=== PATIENT | female | born 1950 | race Caucasian/White ===

== ENCOUNTER 2017-03-20 13:40 | Emergency (ER) | payer BC ==
--- NOTE | 2017-03-20 16:13 | ED ---
General Adult HPI - General Chief complaint: Recheck/Abnormal Lab/Rx Stated complaint: SOB/Dizziness Time Seen by Provider: 03/20/17 15:50 Source: patient, RN notes reviewed Mode of arrival: wheelchair Limitations: no limitations - History of Present Illness Initial comments: Patient 67-year-old female who presents emergency room today with chief complaint of increased weight gain 20 pounds over the last week. Does admit to shortness of breath. Patient does admit that it's worse with exertion when she is up moving around. Patient admits that she's also felt lightheaded dizzy and had some pain to the left side of the abdomen. She was that she gets blurry vision as well probably symptoms occur. Patient admits to some tongue swelling. States been following his family doctor believed related factor thyroid. Patient denies any other complaint or symptoms. Patient denies any recent fever, chills, chest pain, back pain, nausea or vomiting, numbness or tingling, dysuria or hematuria, constipation or diarrhea, headaches or visual changes, or any other complaints. - Related Data Home Medications Medication Instructions Recorded Confirmed DULoxetine HCL [Cymbalta] 60 mg PO HS 09/30/13 03/20/17 Insulin Glargine [Lantus] 10 unit SQ HS 09/30/13 03/20/17 Losartan [Cozaar] 25 mg PO DAILY 03/17/15 03/20/17 Levothyroxine Sodium [Synthroid] 200 mcg PO MOTUWETHFRSA 11/18/15 03/20/17 Cyanocobalamin (Vitamin B-12) 1,000 mcg PO DAILY 03/20/17 03/20/17 [Vitamin B-12] Insulin Lispro [humaLOG Kwikpen] 6 unit SQ AC-TID 03/20/17 03/20/17 L.acidoph,Paracasei, B.lactis 1 cap PO DAILY 03/20/17 03/20/17 [Probiotic] Levothyroxine Sodium [Synthroid] 100 mcg PO PAYAN 03/20/17 03/20/17 Previous Rx's Medication Instructions Recorded Canagliflozin [Invokana] 100 mg PO DAILY #30 tablet 11/29/13 Metoprolol Succinate [Toprol XL] 25 mg PO BID #30 tab.er.24h 11/21/15 Allergies Allergy/AdvReac Type Severity Reaction Status Date / Time No Known Allergies Allergy Verified 03/20/17 16:58 Review of Systems ROS Statement: Those systems with pertinent positive or pertinent negative responses have been documented in the HPI. ROS Other: All systems not noted in ROS Statement are negative. Past Medical History Past Medical History: Asthma, Coronary Artery Disease (CAD), Cancer, Heart Failure, COPD, Diabetes Mellitus, Eye Disorder, Hearing Disorder / Deafness, Hypertension, Thyroid Disorder Additional Past Medical History / Comment(s): HX. AORTIC STENOSIS. 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 [place] RT EAR-WEARS AID; LT GLASS EYE D/T GLAUCOMA, RT EYE GLAUCOMA. BORN W/ PDA - CORRECTED. 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-USUALLY WHEN ACTIVE History of Any Multi-Drug Resistant Organisms: None Reported Past Surgical History: Appendectomy, Cholecystectomy, Heart Catheterization, Tubal Ligation Additional Past Surgical History / Comment(s): aortic valve replacement 39 eye operation cardiac sugery as a baby thyroidectomy Past Anesthesia/Blood Transfusion Reactions: Family History of Problems w/ Anesthesia, Postoperative Nausea & Vomiting (PONV) Additional Past Anesthesia/Blood Transfusion Reaction / Comment(s): BOTH PARENTS ALSO HAD PONV Past Psychological History: Anxiety, Depression Smoking Status: Never smoker Past Alcohol Use History: None Reported Past Drug Use History: None Reported - Past Family History Father Family Medical History: Diabetes Mellitus, Renal Disease Additional Family Medical History / Comment(s): FATHER AT AGE 78 IN HIS SLEEP Mother Family Medical History: Dementia Additional Family Medical History / Comment(s): MOTHER AT AGE 78 YRS. General Exam - General Exam Comments Initial Comments: General: The patient is awake and alert, in no distress, and does not appear acutely ill. Eye: Right pupil is round and reactive to light. Left eye is a glass eye. extra -ocular movements are intact. No nystagmus. There is normal conjunctiva bilaterally. No signs of icterus. Ears, nose, mouth and throat: There are moist mucous membranes and no oral lesions. Neck: The neck is supple, there is no tenderness or JVD. Cardiovascular: There is a regular rate and rhythm. No murmur, rub or gallop is appreciated. Respiratory: Lungs are clear to auscultation, respirations are non-labored, breath sounds are equal. No wheezes, stridor, rales, or rhonchi. Gastrointestinal: Normal appearance abdomen. Normal bowel sounds. Abdomen soft on palpation. Patient does have tenderness left upper quadrant. No rebound tenderness. No guarding. No CVA tenderness. Musculoskeletal: Normal ROM, no tenderness. Strength 5/5. Sensation intact. Pulses equal bilaterally 2+. Neurological: A&O x 3. CN II-XII intact, There are no obvious motor or sensory deficits. Coordination appears grossly intact. Speech is normal. Skin: Skin is warm and dry and no rashes or lesions are noted. Psychiatric: Cooperative, appropriate mood & affect, normal judgment. Limitations: no limitations Course Vital Signs 03/20/17 03/20/17 03/20/17 13:50 16:44 17:33 Temperature 98.1 F 97.6 F Pulse Rate 79 73 73 Respiratory 20 18 Rate Blood Pressure 139/79 149/83 136/80 O2 Sat by Pulse 99 98 96 Oximetry EKG Findings - EKG Comments: EKG Findings:: EKG performed at 1619: Shows normal sinus rhythm with a left bundle branch block at 76 bpm. CA interval 174. QRS 136. QT/QTc 432/486. Compared to previous EKG on 11/18/2015 showed no acute change. Medical Decision Making - Medical Decision Making Discussed with attending Dr nicole. Patient reexamined at this time shows no signs of distress. Patient's labs been reviewed. Patient's TSH is elevated here in emergency room. She currently is on Synthroid. She does not that for the last 2 weeks she did not have the medication was recently got it from the family doctor once again has been taking it. Patient is advised to follow-up the family doctor at this time. No other symptoms. Currently in the emergency room. Advised to return if any symptoms return increase or worsen. She states understanding and is in agreement. - Lab Data Result diagrams: 03/20/17 16:28 03/20/17 16:28 Lab Results 03/20/17 03/20/17 03/20/17 Range/Units 16:28 16:28 16:28 WBC 7.3 (3.8-10.6) k/uL RBC 5.39 (3.80-5.40) m/uL Hgb 15.2 (11.4-16.0) gm/dL Hct 45.7 (34.0-46.0) % MCV 84.9 (80.0-100.0) fL MCH 28.2 (25.0-35.0) pg MCHC 33.2 (31.0-37.0) g/dL RDW 14.7 (11.5-15.5) % Plt Count 258 (150-450) k/uL Neutrophils % 67 % Lymphocytes % 22 % Monocytes % 4 % Eosinophils % 4 % Basophils % 1 % Neutrophils # 4.9 (1.3-7.7) k/uL Lymphocytes # 1.6 (1.0-4.8) k/uL Monocytes # 0.3 (0-1.0) k/uL Eosinophils # 0.3 (0-0.7) k/uL Basophils # 0.1 (0-0.2) k/uL PT (9.0-12.0) sec INR (<1.2) APTT (22.0-30.0) sec Sodium (137-145) mmol/L Potassium (3.5-5.1) mmol/L Chloride (98-107) mmol/L Carbon Dioxide (22-30) mmol/L Anion Gap mmol/L BUN (7-17) mg/dL Creatinine (0.52-1.04) mg/dL Est GFR (MDRD) Af Amer (>60 ml/min/1.73 sqM) Est GFR (MDRD) Non-Af (>60 ml/min/1.73 sqM) Glucose (74-99) mg/dL Calcium (8.4-10.2) mg/dL Total Bilirubin (0.2-1.3) mg/dL AST (14-36) U/L ALT (9-52) U/L Alkaline Phosphatase (38-126) U/L Total Creatine Kinase 351 H (30-135) U/L CK-MB (CK-2) 3.7 H* (0.0-2.4) ng/mL CK-MB (CK-2) Rel Index 1.1 Troponin I <0.012 (0.000-0.034) ng/mL NT-Pro-B Natriuret Pep pg/mL Total Protein (6.3-8.2) g/dL Albumin (3.5-5.0) g/dL TSH 80.700 H (0.465-4.680) mIU/L 03/20/17 03/20/1718 Range/Units 16:28 16:28 16:28 WBC (3.8-10.6) k/uL RBC (3.80-5.40) m/uL Hgb (11.4-16.0) gm/dL Hct (34.0-46.0) % MCV (80.0-100.0) fL MCH (25.0-35.0) pg MCHC (31.0-37.0) g/dL RDW (11.5-15.5) % Plt Count (150-450) k/uL Neutrophils % % Lymphocytes % % Monocytes % % Eosinophils % % Basophils % % Neutrophils # (1.3-7.7) k/uL Lymphocytes # (1.0-4.8) k/uL Monocytes # (0-1.0) k/uL Eosinophils # (0-0.7) k/uL Basophils # (0-0.2) k/uL PT 10.4 (9.0-12.0) sec INR 1.1 (<1.2) APTT 24.9 (22.0-30.0) sec Sodium 135 L (137-145) mmol/L Potassium 4.6 (3.5-5.1) mmol/L Chloride 96 L (98-107) mmol/L Carbon Dioxide 28 (22-30) mmol/L Anion Gap 11 mmol/L BUN 22 H (7-17) mg/dL Creatinine 1.02 (0.52-1.04) mg/dL Est GFR (MDRD) Af Amer >60 (>60 ml/min/1.73 sqM) Est GFR (MDRD) Non-Af 54 (>60 ml/min/1.73 sqM) Glucose 197 H (74-99) mg/dL Calcium 10.0 (8.4-10.2) mg/dL Total Bilirubin 0.5 (0.2-1.3) mg/dL AST 74 H (14-36) U/L ALT 65 H (9-52) U/L Alkaline Phosphatase 65 (38-126) U/L Total Creatine Kinase (30-135) U/L CK-MB (CK-2) (0.0-2.4) ng/mL CK-MB (CK-2) Rel Index Troponin I (0.000-0.034) ng/mL NT-Pro-B Natriuret Pep 48 pg/mL Total Protein 7.7 (6.3-8.2) g/dL Albumin 4.5 (3.5-5.0) g/dL TSH (0.465-4.680) mIU/L Disposition Clinical Impression: Hypothyroid Disposition: HOME SELF-CARE Condition: Stable Instructions: Hypothyroidism (ED) Additional Instructions: Please follow-up with family doctor in the next 2 days. Please return to emergency room if the symptoms increase or worsen or for any other concerns. Referrals: Beau Palmer DO [Primary Care Provider] - 1-2 days Time of Disposition: 18:52
[2017-03-20 16:41] LABS: Basophils # (A) 0.1 k/uL (0-0.2); Basophils % (A) 1 %; Eosinophils # (A) 0.3 k/uL (0-0.7); Eosinophils % (A) 4 %; HCT 45.7 % (34.0-46.0); HGB 15.2 gm/dL (11.4-16.0); Lymphocytes # (A) 1.6 k/uL (1.0-4.8); Lymphocytes % (A) 22 %; MCH 28.2 pg (25.0-35.0); MCHC 33.2 g/dL (31.0-37.0); MCV 84.9 fL (80.0-100.0); Mean Platelet Volume 6.8; Monocytes # (A) 0.3 k/uL (0-1.0); Monocytes % (A) 4 %; Neutrophils # (A) 4.9 k/uL (1.3-7.7); Neutrophils % (A) 67 %; Platelet Count 258 k/uL (150-450); RBC 5.39 m/uL (3.80-5.40); RDW 14.7 % (11.5-15.5); WBC 7.3 k/uL (3.8-10.6)
--- NOTE | 2017-03-20 16:49 | XR ---
EXAMINATION TYPE: XR chest 2V DATE OF EXAM: 03/20/2017 COMPARISON: 11/18/15 HISTORY: Shortness of breath TECHNIQUE: Frontal and lateral views of the chest are obtained. FINDINGS: Scattered senescent parenchymal changes noted. Hyperinflation compatible with COPD. No evidence for infiltrate. No evidence for atelectasis. Heart size is stable. Mediastinal structures are stable and grossly unremarkable. No evidence for hilar prominence. Degenerative changes dorsal spine. IMPRESSION: 1. No evidence for acute pulmonary disease.
[2017-03-20 16:50] LABS: INR 1.1 (<1.2); Partial Thromboplastin Time 24.9 sec (22.0-30.0); Prothrombin Time 10.4 sec (9.0-12.0)
[2017-03-20 16:52] LABS: ALT 65 U/L (9-52); AST 74 U/L (14-36); Albumin 4.5 g/dL (3.5-5.0); Alkaline Phosphatase 65 U/L (38-126); Anion Gap 11 mmol/L; Blood Urea Nitrogen 22 mg/dL (7-17); Carbon Dioxide 28 mmol/L (22-30); Chloride 96 mmol/L (98-107); Glucose 197 mg/dL (74-99); Potassium 4.6 mmol/L (3.5-5.1); Sodium 135 mmol/L (137-145); Total Bilirubin 0.5 mg/dL (0.2-1.3); Total Protein 7.7 g/dL (6.3-8.2)
[2017-03-20 17:00] LABS: Creatine Kinase 351 U/L (30-135)
[2017-03-20 17:13] LABS: Troponin I <0.012 ng/mL (0.000-0.034)
[2017-03-20 17:14] LABS: Creatine Kinase MB 3.7 ng/mL (0.0-2.4)
[2017-03-20 17:34] VITALS: RESP 18
[2017-03-20 19:03] VITALS: TEMP 97.3
[2017-03-20 19:05] VITALS: BP 169/105; PULSE 86
[2017-03-20 19:17] LABS: T4, Free (Free Thyroxine) <0.07 ng/dL (0.78-2.19)
== END 2017-03-20 19:03 | disposition home or self-care (01) ==
LOC: EC 13:40
DX: E03.9 Hypothyroidism, unspecified (principal); J44.9 Chronic obstructive pulmonary disease, unspecified; E11.9 Type 2 diabetes mellitus without complications; I10 Essential (primary) hypertension; F32.9 Major depressive disorder, single episode, unspecified; F41.9 Anxiety disorder, unspecified; Z98.51 Tubal ligation status; Z95.5 Presence of coronary angioplasty implant and graft; Z85.850 Personal history of malignant neoplasm of thyroid; Z90.49 Acquired absence of other specified parts of digestive tract; Z79.4 Long term (current) use of insulin; Z79.899 Other long term (current) drug therapy
CPT/HCPCS: 36415; 71046; 80053; 82550; 82553; 83880; 84439; 84443; 84484; 85025; 85610; 85730; 93005; 99285

== ENCOUNTER 2018-04-25 09:45 | Observation (INO) | payer BC, MEDICARE ==
[2018-04-25] MEDS ORDERED: ASPIRIN 81 MG PO STA (10:10)
[2018-04-25] MEDS ORDERED: SODIUM CHLORIDE 0.9% 500 ML IV STA (10:11)
--- NOTE | 2018-04-25 10:16 | ED ---
General Adult HPI - General Chief complaint: Chest Pain Stated complaint: chest pain Time Seen by Provider: 04/25/18 10:04 Source: patient Mode of arrival: wheelchair Limitations: no limitations - History of Present Illness Initial comments: Dictation was produced using [employer] dictation software. please excuse any grammatical, word or spelling errors. Chief Complaint: 68-year-old female with past medical history of asthma, coronary artery disease, heart rate, COPD, diabetes presents with chest pain that started last night. History of Present Illness: Patient is 68-year-old female she has past medical history coronary artery disease status post open heart for laboratory placement. Patient has history of bioprosthetic valve. Since last night patient began having extremity pain. She states that this morning she woke up with chest pain. She reports the chest pain is a pressure-like sensation to the anterior chest. Denies any radiation to the back. No radiation to the shoulders. No associated diaphoresis. She does complain of associated dull crampy pain of all of her extremities. Denies any numbness and weakness of those extremities. Patient reports exacerbation with ambulation. Patient denies any pain with inspiration or expiration. Denies any symptoms over the weekend decided prior to yesterday. The ROS documented in this emergency department record has been reviewed and confirmed by me. Those systems with pertinent positive or negative responses have been documented in the HPI. All other systems are other negative and/or noncontributory. PHYSICAL EXAM: General Impression: Alert and oriented x3, mild acute distress secondary to pain HEENT: Normocephalic atraumatic, extra-ocular movements intact, pupils equal and reactive to light bilaterally, mucous membranes moist. Cardiovascular: Heart regular rate and rhythm, S1&S2 audible, no murmurs, rubs or gallops Chest: Lungs clear to auscultation bilaterally, no rhonchi, no wheeze, no rales, midline chest scar Abdomen: Bowel sounds present, abdomen soft, non-tender, non-distended, no organomegaly Musculoskeletal: Pulses present and equal in all extremities, no peripheral edema Motor: no focal deficits noted Neurological: CN II-XII grossly intact, no focal motor or sensory deficits noted Skin: Intact with no visualized rashes Psych: Normal affect and mood ED course: 68-year-old female presents with chief complaint of chest pain and for extremity pain. Vital signs upon arrival shows heart rate of 116, worse vital signs within acceptable limits. EKG shows hyperacute T waves, worse compared to 03/20/2017. Patient has 4 extremities pain. All pulses are 2+ in all extremities. Patient does not have any asymmetrical strength deficit or sensory deficits to the extremities. Patient does not have radiation of pain to the back. There is no clinical suspicion of acute aortic dissection at this time. Given EKG changes and evidence of worsening hyperacute T waves there is strong clinical suspicion of acute coronary syndrome at this time. Patient given aspirin. Repeat EKG was performed after 40 minutes from initial EKG showing no dynamic changes at this time. Patient reevaluated with no progression of symptoms. She still however complains of mild pain which is slightly improved compared to initial time of arrival. No suspicion of acute myocardial infarctions at this time.Laboratory evaluation obtained. CBC unremarkable. Coag panel unremarkable. Metabolic panel does show some mild gap acidosis. Patient has some magnesium 1.5. Cardiac enzymes negative. Patient has no focal findings to suggest extremity ischemia. At this point is unclear what patient's gap acidosis from a beat it is minimal. Patient given parenteral magnesium. Patient started on heparin. [facility]. Patient given aspirin. EKG interpretation: Ventricular rate 101, sinus tachycardia, NE interval 152, QRS 126, QTC is 471. No NE prolongation, no QTC prolongation, no ST or T-wave changes noted. EKG compared to March 20, 2017 showing no changes. - Related Data Home Medications Medication Instructions Recorded Confirmed DULoxetine HCL [Cymbalta] 60 mg PO BID 09/30/13 04/25/18 Insulin Glargine [Lantus] 10 unit SQ HS 09/30/13 04/25/18 Losartan [Cozaar] 25 mg PO HS 03/17/15 04/25/18 Levothyroxine Sodium [Synthroid] 200 mcg PO DAILY 11/18/15 04/25/18 Aspirin EC [Ecotrin Low Dose] 81 mg PO HS 04/25/18 04/25/18 Brimonidine Tartrate [Alphagan P 1 drops RIGHT EYE TID 04/25/18 04/25/18 0.1% Ophth Soln] Dorzolamide 2% [Trusopt 2%] 1 drops RIGHT EYE TID 04/25/18 04/25/18 Insulin Degludec [Tresiba 8 units SQ AC-SUPPER 04/25/18 04/25/18 Flextouch U-100] Latanoprost [Xalatan 0.005%] 1 drop RIGHT EYE HS 04/25/18 04/25/18 Previous Rx's Medication Instructions Recorded Canagliflozin [Invokana] 100 mg PO DAILY #30 tablet 11/29/13 Metoprolol Succinate [Toprol XL] 25 mg PO BID #30 tab.er.24h 11/21/15 Allergies Allergy/AdvReac Type Severity Reaction Status Date / Time No Known Allergies Allergy Verified 04/25/18 10:16 Review of Systems ROS Statement: Those systems with pertinent positive or pertinent negative responses have been documented in the HPI. ROS Other: All systems not noted in ROS Statement are negative. Past Medical History Past Medical History: Asthma, Coronary Artery Disease (CAD), Cancer, Heart Failure, COPD, Diabetes Mellitus, Eye Disorder, Hearing Disorder / Deafness, Hypertension, Thyroid Disorder Additional Past Medical History / Comment(s): HX. AORTIC STENOSIS. 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 [place] RT EAR-WEARS AID; LT GLASS EYE D/T GLAUCOMA, RT EYE GLAUCOMA. BORN W/ PDA - CORRECTED. 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-USUALLY WHEN ACTIVE History of Any Multi-Drug Resistant Organisms: None Reported Past Surgical History: Appendectomy, Cholecystectomy, Heart Catheterization, Tubal Ligation Additional Past Surgical History / Comment(s): aortic valve replacement 39 eye operation cardiac sugery as a baby thyroidectomy Past Anesthesia/Blood Transfusion Reactions: Family History of Problems w/ Anesthesia, Postoperative Nausea & Vomiting (PONV) Additional Past Anesthesia/Blood Transfusion Reaction / Comment(s): BOTH PARENTS ALSO HAD PONV Past Psychological History: Anxiety, Depression Smoking Status: Never smoker Past Alcohol Use History: None Reported Past Drug Use History: None Reported - Past Family History Father Family Medical History: Diabetes Mellitus, Renal Disease Additional Family Medical History / Comment(s): FATHER AT AGE 78 IN HIS SLEEP Mother Family Medical History: Dementia Additional Family Medical History / Comment(s): MOTHER AT AGE 78 YRS. General Exam Limitations: no limitations Course Vital Signs 04/25/18 04/25/18 04/25/18 09:49 10:30 11:30 Temperature 97.8 F Pulse Rate 116 H 101 H 90 Respiratory 16 14 28 H Rate Blood Pressure 121/81 112/73 147/90 O2 Sat by Pulse 98 98 97 Oximetry Medical Decision Making - Lab Data Result diagrams: 04/25/18 10:08 04/25/18 10:08 Lab Results 04/25/18 04/25/18 04/25/18 Range/Units 10:08 10:08 10:08 WBC 4.2 (3.8-10.6) k/uL RBC 5.43 H (3.80-5.40) m/uL Hgb 15.1 (11.4-16.0) gm/dL Hct 45.2 (34.0-46.0) % MCV 83.2 (80.0-100.0) fL MCH 27.8 (25.0-35.0) pg MCHC 33.4 (31.0-37.0) g/dL RDW 13.9 (11.5-15.5) % Plt Count 248 (150-450) k/uL Neutrophils % 84 % Lymphocytes % 7 % Monocytes % 4 % Eosinophils % 3 % Basophils % 0 % Neutrophils # 3.5 (1.3-7.7) k/uL Lymphocytes # 0.3 L (1.0-4.8) k/uL Monocytes # 0.2 (0-1.0) k/uL Eosinophils # 0.1 (0-0.7) k/uL Basophils # 0.0 (0-0.2) k/uL PT (9.0-12.0) sec INR (<1.2) APTT (22.0-30.0) sec Sodium 138 (137-145) mmol/L Potassium 4.3 (3.5-5.1) mmol/L Chloride 104 (98-107) mmol/L Carbon Dioxide 21 L (22-30) mmol/L Anion Gap 13 mmol/L BUN 16 (7-17) mg/dL Creatinine 0.76 (0.52-1.04) mg/dL Est GFR (CKD-EPI)AfAm >90 (>60 ml/min/1.73 sqM) Est GFR (CKD-EPI)NonAf 83 (>60 ml/min/1.73 sqM) Glucose 160 H (74-99) mg/dL Calcium 9.7 (8.4-10.2) mg/dL Magnesium 1.5 L (1.6-2.3) mg/dL Total Bilirubin 1.1 (0.2-1.3) mg/dL AST 24 (14-36) U/L ALT 24 (9-52) U/L Alkaline Phosphatase 59 (38-126) U/L Creatine Kinase (30-135) U/L Troponin I (0.000-0.034) ng/mL NT-Pro-B Natriuret Pep 202 pg/mL Total Protein 6.8 (6.3-8.2) g/dL Albumin 4.1 (3.5-5.0) g/dL Lipase 93 (23-300) U/L 04/25/18 04/25/18 04/25/18 Range/Units 10:08 10:08 10:08 WBC (3.8-10.6) k/uL RBC (3.80-5.40) m/uL Hgb (11.4-16.0) gm/dL Hct (34.0-46.0) % MCV (80.0-100.0) fL MCH (25.0-35.0) pg MCHC (31.0-37.0) g/dL RDW (11.5-15.5) % Plt Count (150-450) k/uL Neutrophils % % Lymphocytes % % Monocytes % % Eosinophils % % Basophils % % Neutrophils # (1.3-7.7) k/uL Lymphocytes # (1.0-4.8) k/uL Monocytes # (0-1.0) k/uL Eosinophils # (0-0.7) k/uL Basophils # (0-0.2) k/uL PT 10.5 (9.0-12.0) sec INR 1.0 (<1.2) APTT 22.0 (22.0-30.0) sec Sodium (137-145) mmol/L Potassium (3.5-5.1) mmol/L Chloride (98-107) mmol/L Carbon Dioxide (22-30) mmol/L Anion Gap mmol/L BUN (7-17) mg/dL Creatinine (0.52-1.04) mg/dL Est GFR (CKD-EPI)AfAm (>60 ml/min/1.73 sqM) Est GFR (CKD-EPI)NonAf (>60 ml/min/1.73 sqM) Glucose (74-99) mg/dL Calcium (8.4-10.2) mg/dL Magnesium (1.6-2.3) mg/dL Total Bilirubin (0.2-1.3) mg/dL AST (14-36) U/L ALT (9-52) U/L Alkaline Phosphatase (38-126) U/L Creatine Kinase 46 (30-135) U/L Troponin I <0.012 (0.000-0.034) ng/mL NT-Pro-B Natriuret Pep pg/mL Total Protein (6.3-8.2) g/dL Albumin (3.5-5.0) g/dL Lipase (23-300) U/L Disposition Clinical Impression: ACS (acute coronary syndrome) Disposition: ADMITTED IP TO THIS HOSP Condition: Fair Referrals: Beau Palmer DO [Primary Care Provider] - 1-2 days Decision Time: 12:16
[2018-04-25 10:31] LABS: Basophils % (A) 0 %; Eosinophils # (A) 0.1 k/uL (0-0.7); Eosinophils % (A) 3 %; HCT 45.2 % (34.0-46.0); HGB 15.1 gm/dL (11.4-16.0); Lymphocytes # (A) 0.3 k/uL (1.0-4.8); Lymphocytes % (A) 7 %; MCH 27.8 pg (25.0-35.0); MCHC 33.4 g/dL (31.0-37.0); MCV 83.2 fL (80.0-100.0); Mean Platelet Volume 6.5; Monocytes # (A) 0.2 k/uL (0-1.0); Monocytes % (A) 4 %; Neutrophils # (A) 3.5 k/uL (1.3-7.7); Neutrophils % (A) 84 %; Platelet Count 248 k/uL (150-450); RBC 5.43 m/uL (3.80-5.40); RDW 13.9 % (11.5-15.5); WBC 4.2 k/uL (3.8-10.6)
--- NOTE | 2018-04-25 10:38 | XR ---
EXAMINATION TYPE: XR chest 2V DATE OF EXAM: 04/25/2018 COMPARISON: 03/20/2017 TECHNIQUE: PA and lateral views submitted. HISTORY: Chest pain FINDINGS: The lungs are clear and there is no pneumothorax, pleural effusion, or focal pneumonia. Hypertrophi c and degenerative change of the spine. Postoperative changes noted. Prosthetic heart valve. No overt failure. No consolidation. No pleural effusion. IMPRESSION: 1. No acute process.
[2018-04-25 10:39] LABS: Prothrombin Time 10.5 sec (9.0-12.0)
[2018-04-25 10:46] LABS: ALT 24 U/L (9-52); AST 24 U/L (14-36); Albumin 4.1 g/dL (3.5-5.0); Alkaline Phosphatase 59 U/L (38-126); Anion Gap 13 mmol/L; Blood Urea Nitrogen 16 mg/dL (7-17); Calcium 9.7 mg/dL (8.4-10.2); Carbon Dioxide 21 mmol/L (22-30); Chloride 104 mmol/L (98-107); Glucose 160 mg/dL (74-99); Lipase 93 U/L (23-300); Magnesium 1.5 mg/dL (1.6-2.3); Potassium 4.3 mmol/L (3.5-5.1); Sodium 138 mmol/L (137-145); Total Bilirubin 1.1 mg/dL (0.2-1.3); Total Protein 6.8 g/dL (6.3-8.2)
[2018-04-25] MEDS ORDERED: HEPARIN SODIUM,PORCINE 5,000 UNIT/ML 1 ML VIAL IV PRN (11:37)
[2018-04-25] MEDS ORDERED: HEPARIN SODIUM,PORCINE 5,000 UNIT/ML 1 ML VIAL IV ONE (11:37)
[2018-04-25] MEDS ORDERED: HEPARIN SOD,PORK IN 0.45% NACL 25,000 UNIT in 0.45% NACL 1 250ML.BAG IV SCH (11:45)
[2018-04-25] MEDS: MAGNESIUM SULFATE-D5W PMX 1 GM in DEXTROSE/WATER 1 100ML.BAG IVPB SCH ×2 (12:01→14:43)
[2018-04-25] MEDS ORDERED: NITROGLYCERIN SL TABS 0.4 MG TAB SUBLINGUAL PRN (12:09)
[2018-04-25 13:40] VITALS: BMI 28.3
[2018-04-25 16:59] LABS: Glucose,Whole Blood 82 mg/dL (75-99)
[2018-04-25 17:03] VITALS: RESP 18
--- NOTE | 2018-04-25 17:28 | CONS ---
CONSULTATION Mrs. Watkins is a 68-year-old female who is followed by Dr. Riley Palencia on a regular basis and presented with symptoms of chest discomfort. She has a known history of aortic valve disease status post aortic valve replacement, but no history of obstructive coronary artery disease. She presented with symptoms of chest discomfort and leg discomfort, occurred after she was exercising, but not during exercise. She has underwent cardiac catheterization prior to her surgery that was done in 2013 and subsequently underwent repeat cardiac catheterization in November 2015 that revealed no evidence of progression of disease. She has a known history of PDA closure as a child. She has underwent a myocardial perfusion imaging in May of 2017 revealed no evidence of inducible ischemia. The patient is trying to be more active physically, her breathing has been stable. She denies any dizziness or palpitation. She denies any palpitation. She has some peripheral edema. No clear PND nor orthopnea. Her coronary risk factors are positive for history of diabetes, hypertension. MEDICATION: Include aspirin, metoprolol succinate 25 mg twice a day, losartan 25 mg daily, insulin, Cymbalta, Invokana, and Alphagan. REVIEW OF SYSTEMS: Respiratory system: She has no history of documented asthma, emphysema or bronchitis. GI system: No recent GI bleed. No peptic ulcer disease. system: No dysuria or hematuria. Nervous system: No stroke or seizure. PAST MEDICAL HISTORY: Remarkable for the aortic valve replacement done by Dr. Soares. PHYSICAL EXAMINATION: She is a 68-year-old female, alert, oriented, in no apparent distress. Blood pressure running in the 130s to 150s with a heart rate in the 80s. HEAD: Normocephalic. EYES: Right eye sclerae nonicteric. 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 Neck: Good carotid upstroke. No bruit. LUNGS: Clear to auscultation. HEART: Regular rate and rhythm S1, S2. No S3 with systolic ejection murmur heard at the base 2/6. No diastolic murmur. No rub. ABDOMEN: Soft, nontender. Positive bowel sounds. No organomegaly. EXTREMITIES: +1 edema. +1 distal pulses. LAB DATA: Lab data revealed troponin less than 0.012. BUN and creatinine 16 and 0.76. Potassium 4.3. Hemoglobin of 15.1. EKG revealed a sinus mechanism, rate of 101, normal axis and evidence of intraventricular conduction delay with no change compared with the old EKG. IMPRESSION: 1. Chest discomfort atypical for ischemic heart disease in a patient with no history of obstructive coronary disease. 2. Status post aortic valve replacement. 3. History of hypertension. 4. Hyperlipidemia. RECOMMENDATION: From the cardiac standpoint, I will continue on her home medication. We will repeat the echocardiogram. If her enzymes are negative, then no further cardiac workup will be needed. Thank you for this consult. We will follow with you. MMODL / IJN: [id number] /
[2018-04-25 20:33] LABS: Glucose,Whole Blood 162 mg/dL (75-99)
[2018-04-25] MEDS: ATORVASTATIN 40 MG TAB PO SCH (20:39)
[2018-04-25] MEDS: METOPROLOL SUCCINATE (ER) 25 MG TAB.ER.24H PO SCH (20:42)
[2018-04-25] MEDS ORDERED: ASPIRIN 81 MG PO SCH (21:00)
[2018-04-25] MEDS ORDERED: LOSARTAN 25 MG TAB PO SCH (21:00)
--- NOTE | 2018-04-25 21:27 | P.HPIM ---
History of Present Illness H&P Date: 04/25/18 Chief Complaint: Chest pain Patient is a 68 alert female with a known history of aortic valve replacement, closure of PDA, hypertension, diabetes type 2 insulin-dependent, depression, hearing disorder/deafness, vision problems, IBS and history of migraine headaches, asthma and other multiple medical problems came to ER with complaints of chest pain which started last night. Chest pain is mainly pressure-like sensation in the retrosternal. No radiation. Assess with mild shortness of breath. No diaphoresis. No headache or dizziness or lightheadedness. Patient does have nausea but no episodes of vomiting. Denied any numbness or tingling. Patient says that she had chest pain after finishing her exercise. She also complains of dull crampy pain or follow her extremities. Denied any cough or sputum production. No fever no chills. Denied any recent illnesses. No recent travel or sick contacts. EKG showed normal sinus rhythm. Chest x-ray showed no acute cardio pulmonary process. Patient does have a history of prior cardiac catheterization but no history of PCI. Review of Systems Constitutional: Patient denies any fever or chills . No generalized weakness or weight loss. Abdomen: Patient denied nausea vomiting and diarrhea and abdominal pain. Cardiovascular: Patient does have chest tightness. No short of breath. No palpitation or leg swelling nor the piano PND. Respiratory: patient denied any cough is from production. No shortness of breath Neurologic: Patient denied any numbness or tingling headache. Musculoskeletal: Patient denies any complaints of joint swelling or deformity. Skin: Negative Psychiatric: Negative Endocrine: No heat or cold intolerance. No recent weight gain. Genitourinary: No dysuria or hematuria. 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 History of Any Multi-Drug Resistant Organisms: None Reported Past Surgical History: Appendectomy, Cardiac Valve Replacement, Section, Heart Catheterization, Tubal Ligation Additional Past Surgical History / Comment(s): Aortic valve replacement, PDA surgery to close, multiple eye surgeries/L eye enucleation, bronchoscopy with BAL, EGD, colonoscopy, D&C Past Anesthesia/Blood Transfusion Reactions: Family History of Problems w/ Anesthesia, Postoperative Nausea & Vomiting (PONV) Additional Past Anesthesia/Blood Transfusion Reaction / Comment(s): PATIENT AND BOTH HER PARENTS ALSO HAD PONV Smoking Status: Never smoker - Past Family History Father Family Medical History: Diabetes Mellitus, Renal Disease Additional Family Medical History / Comment(s): FATHER AT AGE 78 IN HIS SLEEP Mother Family Medical History: Dementia Additional Family Medical History / Comment(s): MOTHER AT AGE 78 YRS. Medications and Allergies Home Medications Medication Instructions Recorded Confirmed Type DULoxetine HCL [Cymbalta] 60 mg PO BID 09/30/13 04/25/18 History Insulin Glargine [Lantus] 10 unit SQ HS 09/30/13 04/25/18 History Canagliflozin [Invokana] 100 mg PO DAILY #30 tablet 11/29/13 04/25/18 Rx Losartan [Cozaar] 25 mg PO HS 03/17/15 04/25/18 History Levothyroxine Sodium [Synthroid] 200 mcg PO DAILY 11/18/15 04/25/18 History Metoprolol Succinate [Toprol XL] 25 mg PO BID #30 tab.er.24h 11/21/15 04/25/18 Rx Aspirin EC [Ecotrin Low Dose] 81 mg PO HS 04/25/18 04/25/18 History Brimonidine Tartrate [Alphagan P 1 drops RIGHT EYE TID 04/25/18 04/25/18 History 0.1% Ophth Soln] Dorzolamide 2% [Trusopt 2%] 1 drops RIGHT EYE TID 04/25/18 04/25/18 History Insulin Degludec [Tresiba 8 units SQ AC-SUPPER 04/25/18 04/25/18 History Flextouch U-100] Latanoprost [Xalatan 0.005%] 1 drop RIGHT EYE HS 04/25/18 04/25/18 History Allergies Allergy/AdvReac Type Severity Reaction Status Date / Time No Known Allergies Allergy Verified 04/25/18 10:16 Physical Exam Vitals: Vital Signs Temp Pulse Resp BP Pulse Ox 04/25/18 15:30 92 81 H 139/80 99 04/25/18 15:00 90 21 141/86 98 04/25/18 14:30 89 5 L 150/83 97 04/25/18 14:00 92 4 L 144/80 96 04/25/18 13:30 93 13 136/77 95 04/25/18 13:00 94 8 L 144/82 96 04/25/18 12:30 98 19 147/82 97 04/25/18 12:00 92 16 152/87 96 04/25/18 11:30 90 28 H 147/90 97 04/25/18 10:30 101 H 14 112/73 98 04/25/18 09:49 97.8 F 116 H 16 121/81 98 Intake and Output 04/25/18 04/25/18 04/25/18 06:59 14:59 22:59 Other: Weight 68.039 kg PHYSICAL EXAMINATION: Patient is lying in the bed comfortably, no acute distress, awake alert and oriented.. HEENT: Normocephalic. Neck is supple. Pupils reactive. Nostrils clear. Oral cavity is moist. Ears reveal no drainage. Neck reveals no JVD, carotid bruits, or thyromegaly. CHEST EXAMINATION: Trachea is central. Symmetrical expansion. Lung zelaya clear to auscultation and percussion. CARDIAC: Normal S1, S2 with no gallops. No murmurs ABDOMEN: Soft. Bowel sounds normal. No organomegaly. No abdominal bruits. Extremities: reveal no edema. No clubbing or cyanosis Neurologically awake, alert, oriented x3 with well-coordinated movements. No focal deficits noted Skin: No rash or skin lesions. Psychiatric: Coperative. Nonsuicidal Musculoskeletal: No joint swelling or deformity. Normal range of motion. Results CBC & Chem 7: 04/25/18 10:08 04/25/18 10:08 Labs: Abnormal Lab Results - Last 24 Hours (Table) 04/25/18 04/25/18 Range/Units 10:08 10:08 RBC 5.43 H (3.80-5.40) m/uL Lymphocytes # 0.3 L (1.0-4.8) k/uL Carbon Dioxide 21 L (22-30) mmol/L Glucose 160 H (74-99) mg/dL Magnesium 1.5 L (1.6-2.3) mg/dL Thrombosis Risk Factor Assmnt - DVT/VTE Prophylaxis DVT/VTE Prophylaxis: Pharmacologic Prophylaxis ordered - Choose All That Apply Any of the Below Risk Factors Present?: Yes Each Factor Represents 1 point: Obesity (BMI >25) Other Risk Factors: Yes Each Risk Factor Represents 2 Points: Age 61-74 years, Malignancy Other congenital or acquired thrombophilia - If yes, enter type in comment: No Thrombosis Risk Factor Assessment Total Risk Factor Score: 5 Thrombosis Risk Factor Assessment Level: High Risk Assessment and Plan Assessment: Chest pain/atypical angina-like symptoms. Rule out ACS Prior history of cardiac catheterization but no PCI History of aortic valve replacement with bioprosthetic valve History of PDA closure Diabetes type 2 insulin-dependent Asthma stable Hearing disorder Hypothyroidism Right eye visual loss IBS History of thyroid cancer status post surgery History of migraine headaches and sinus problems DVT prophylaxis Plan: Patient will be continued on telemetry monitoring. Serial EKG and troponins. 2-D echo cardiac was ordered. We'll continue the home blood pressure medications including Toprol and losartan. Continue with aspirin. Continue with insulin dosing and sliding scale as needed. Cardiology is on board. Further conditions based on the clinical course. Time with Patient: Greater than 30
[2018-04-25] MEDS ORDERED: LATANOPROST 0.005% OPHTH DROPS 2.5 ML BTL RIGHT EYE SCH (21:30)
[2018-04-25] MEDS ORDERED: INSULIN DETEMIR (LEVEMIR) 100 UNIT/ML SYR SQ SCH (21:30)
[2018-04-25 22:58] LABS: Cholesterol 185 mg/dL (<200); HDL Cholesterol 63 mg/dL (40-60); LDL Cholesterol,Calculated 105 mg/dL (0-99); Triglycerides 84 mg/dL (<150)
[2018-04-25] MEDS: BRIMONIDINE TARTRATE 0.2% DROPS 5 ML BTL RIGHT EYE SCH (23:23)
[2018-04-25] MEDS: DORZOLAMIDE HCL 2% DROPS 10 ML BTL RIGHT EYE SCH (23:23)
[2018-04-26] MEDS: LEVOTHYROXINE 100 MCG TAB PO SCH ×2 (05:08→09:58)
[2018-04-26 06:42] LABS: Glucose,Whole Blood 109 mg/dL (75-99)
[2018-04-26] MEDS ORDERED: ASPIRIN 325 MG TAB PO SCH (09:00)
[2018-04-26] MEDS ORDERED: DULoxetine HCL 60 MG CAPSULE.DR PO SCH (09:00)
[2018-04-26] MEDS ORDERED: Canagliflozin [Invokana] 100 MG PO SCH (09:00)
--- NOTE | 2018-04-26 09:36 | PN ---
PROGRESS NOTE Ms. Watkins is a 68-year-old female who was admitted yesterday with symptoms of chest discomfort and leg discomfort after exercising. She has a known history of aortic valve replacement. No history of obstructive coronary artery disease. She is feeling better today. She is denying any chest pain. Her breathing has been stable. She denies any dizziness or palpitation. She denies any nausea. She continues to be on IV heparin, aspirin once a day, Lipitor 40 mg daily, duloxetine, insulin, levothyroxine, losartan 25 mg daily, metoprolol tartrate 25 mg twice a day. PHYSICAL EXAMINATION: Blood pressure 146/70 with the heart rate in 70s. LUNGS: Clear. HEART: Regular rate and rhythm. S1, S2. No S3 with systolic murmur. No diastolic murmur. No rub. ABDOMEN: Soft, nontender. Positive bowel sounds. No organomegaly. EXTREMITIES: No significant edema. IMPRESSION: 1. Chest discomfort atypical for ischemic heart disease. 2. Status post aortic valve replacement. 3. History of hypertension. 4. Diabetes mellitus. RECOMMENDATION: From the cardiac standpoint I will review the results of her echocardiogram. If stable, she should be able to be discharged home today and followed as an outpatient with Dr. Palencia. MMODL / IJN: [id number] /
[2018-04-26] MEDS: ATORVASTATIN 40 MG TAB PO SCH (09:59)
[2018-04-26] MEDS: METOPROLOL SUCCINATE (ER) 25 MG TAB.ER.24H PO SCH (09:59)
[2018-04-26] MEDS: BRIMONIDINE TARTRATE 0.2% DROPS 5 ML BTL RIGHT EYE SCH (10:00)
[2018-04-26] MEDS: DORZOLAMIDE HCL 2% DROPS 10 ML BTL RIGHT EYE SCH (10:00)
[2018-04-26 11:34] VITALS: BP 130/78; PULSE 79; TEMP 98.2
[2018-04-26 11:50] LABS: Glucose,Whole Blood 186 mg/dL (75-99)
--- NOTE | 2018-04-26 13:23 | ECHOF ---
Referral Reason:AVR MEASUREMENTS -------- HEIGHT: 154.9 cm WEIGHT: 68.0 kg BP: 150/83 RVIDd: 2.5 cm (< 3.3) IVSd: 1.1 cm (0.6 - 1.1) LVIDd: 3.2 cm (3.9 - 5.3) LVPWd: 1.2 cm (0.6 - 1.1) IVSs: 1.3 cm LVIDs: 2.6 cm LVPWs: 1.3 cm LAESV Index (A-L): 20.50 ml/m Ao Diam: 3.1 cm (2.0 - 3.7) AV Cusp: 1.6 cm (1.5 - 2.6) LA Diam: 3.0 cm (2.7 - 3.8) EPSS: 0.7 cm MV E [place]: 1.04 m/s MV DecT: 253 ms MV A [place]: 1.56 m/s MV E/A Ratio: 0.67 AV maxP.58 mmHg AV meanP.03 mmHg RAP: 5.00 mmHg RVSP: 13.34 mmHg MV EF SLOPE: 61.18 mm/s (70 - 150) MV EXCURSION: 1.08 cm (> 18.000) FINDINGS -------- Sinus rhythm. This was a technically adequate study. The left ventricular size is normal. There is mild concentric left ventricular hypertrophy. Overa ll left ventricular systolic function is low-normal with, an EF between 50 - 55 %. The right ventricle is normal in size. Normal LA size by volume 22+/-6 ml/m2. The right atrium is normal in size. There is no evidence of aortic regurgitation. There is no evidence of aortic stenosis. Peak/mean gradient across the Aortic Valve is 17.58mmHg / 11.03mmHg. Normally functioning bioprosthetic valve . The mitral valve leaflets are mild to moderately thickened. Irps-mp-dyqszyni mitral regurgitation is present. The peak and mean MV gradients are 13.23mmHg 5.06mmHg as measured by doppler. Trace tricuspid regurgitation present. Right ventricular systolic pressure is normal at < 35 mmHg. There is no evidence of pulmonary hypertension. The pulmonic valve was not well visualized. Trace/mild (physiologic) pulmonic regurgitation. The aortic root size is normal. Normal inferior vena cava with normal inspiratory collapse consistent with estimated right atrial pre ssure of 5 mmHg. There is no pericardial effusion. CONCLUSIONS -------- 1. Sinus rhythm. 2. This was a technically adequate study. 3. The left ventricular size is normal. 4. There is mild concentric left ventricular hypertrophy. 5. Overall left ventricular systolic function is low-normal with, an EF between 50 - 55 %. 6. Normal LA size by volume 22+/-6 ml/m2. 7. Peak/mean gradient across the Aortic Valve is 17.58mmHg / 11.03mmHg. 8. Normally functioning bioprosthetic valve. 9. The mitral valve leaflets are mild to moderately thickened. 10. Pxxz-jo-jvadtwrx mitral regurgitation is present. 11. The peak and mean MV gradients are 13.23mmHg 5.06mmHg as measured by doppler. 12. Trace tricuspid regurgitation present. 13. Right ventricular systolic pressure is normal at < 35 mmHg. 14. Trace/mild (physiologic) pulmonic regurgitation. 15. The aortic root size is normal. 16. There is no pericardial effusion. LAND APPRAISER: Terrell Anderson RDCS
[2018-04-26] MEDS ORDERED: INSULIN DETEMIR (LEVEMIR) 100 UNIT/ML SYR SQ SCH (17:30)
== END 2018-04-26 14:20 | disposition home or self-care (01) ==
LOC: EC 09:45 → 1SOBS 12:30
PROVIDERS: ADMIT Internal Medicine; ATTEND Internal Medicine
DX: I24.9 Acute ischemic heart disease, unspecified (principal); E11.9 Type 2 diabetes mellitus without complications; I10 Essential (primary) hypertension; Z95.2 Presence of prosthetic heart valve; E83.42 Hypomagnesemia; E78.5 Hyperlipidemia, unspecified; E87.2 Acidosis; H40.9 Unspecified glaucoma; H91.93 Unspecified hearing loss, bilateral; I11.0 Hypertensive heart disease with heart failure; I50.9 Heart failure, unspecified; K58.9 Irritable bowel syndrome, unspecified; Z97.4 Presence of external hearing-aid; Z79.890 Hormone replacement therapy; Z85.850 Personal history of malignant neoplasm of thyroid; Z90.01 Acquired absence of eye; J44.9 Chronic obstructive pulmonary disease, unspecified; I25.10 Atherosclerotic heart disease of native coronary artery without angina pectoris; Z90.49 Acquired absence of other specified parts of digestive tract; Z98.51 Tubal ligation status; E89.0 Postprocedural hypothyroidism; Z83.3 Family history of diabetes mellitus; Z79.82 Long term (current) use of aspirin; Z79.4 Long term (current) use of insulin; Z79.899 Other long term (current) drug therapy
CPT/HCPCS: 96366 ×3; 96368; 96365; 99285; 36415; 93005; 93306; 83880; 80061; 80053; 82550; 83690; 83735; 84484; 85025; 85610; 85730 ×2; 71046; G0378 ×2; J1644 ×2; J3475

== ENCOUNTER → 2018-10-26 | Outpatient (CLI) | payer MEDICARE, BC ==
[2018-10-26 17:04] LABS: African American GFR (CKD) 77.2 (60.0-200.0); Non-African American GFR(CKD) 66.6 (60.0-200.0)
== END | disposition home or self-care (01) ==
LOC: LABWHC1 11:15
PROVIDERS: ATTEND Family Medicine
DX: R10.12 Left upper quadrant pain (principal)
CPT/HCPCS: 36415; 82565; 84520

== ENCOUNTER → 2018-10-27 | Outpatient (CLI) | payer MEDICARE, BC ==
--- NOTE | 2018-10-29 21:41 | CT ---
EXAMINATION TYPE: CT abdomen w con DATE OF EXAM: 10/27/2018 COMPARISON: 11/19/2015 HISTORY: 68-year-old female Intra-abdominal and pelvic swelling, mass TECHNIQUE: Contiguous axial scanning of the abdomen following administration of 100 ml Isovue 300 IV contrast. Delayed images through the kidneys and coronal/sagittal reconstructions performed. CT DLP: 643 mGycm Automated exposure control for dose reduction was used. FINDINGS: Median sternotomy wires. Heart normal size without pericardial effusion. No focal liver lesion or biliary ductal dilatation. Portal system is patent. Gallbladder, adrenal glands, spleen, and pancreas appear within normal limits. A 1 cm cyst within each kidney. No hydronephrosis. Small fatty umbilical hernia. Some scattered prominent mesenteric lymph nodes measuring up to 5 mm a nonspecific, probably reactive or postinflammatory. Retroperitoneal lymph nodes are nonenlarged and borderline enlarged measuring up to 6 mm in the aorto caval region, unchanged from 11/19/2015. Moderate to large stool throughout the colon. No pericolonic inflammatory change. The lower abdomen and pelvis is not imaged. Bones: No osseous destructive process. IMPRESSION: 1. MODERATE TO LARGE STOOL BURDEN. 2. SMALL FATTY UMBILICAL HERNIA. 3. SCATTERED NONENLARGED AND BORDERLINE SIZED MESENTERIC AND RETROPERITONEAL LYMPH NODES ARE UNCHANGE D FROM 2015, LIKELY REACTIVE/POST INFLAMMATORY. 4. THE LOWER ABDOMEN AND PELVIS IS NOT IMAGED.
== END | disposition home or self-care (01) ==
LOC: RADCTMAIN 14:01
PROVIDERS: ATTEND Family Medicine
DX: K44.9 Diaphragmatic hernia without obstruction or gangrene (principal); R10.12 Left upper quadrant pain; R19.5 Other fecal abnormalities
CPT/HCPCS: 74160; Q9967

== ENCOUNTER → 2019-11-01 | Outpatient (CLI) | payer MEDICARE, BC | END | disposition home or self-care (01) | LOC: RADUSWWP 14:07 | PROVIDERS: ATTEND Podiatrist Foot & Ankle Surgery | DX: I73.9 Peripheral vascular disease, unspecified (principal) | CPT/HCPCS: 93922 ==

== ENCOUNTER → 2020-12-16 | Outpatient (CLI) | payer MEDICARE ==
--- NOTE | 2020-12-16 13:29 | CONS ---
CONSULTATION DATE OF SERVICE: 12/16/2020 70-year-old lady has been evaluated in [facility] for significant excessive daytime sleepiness and multiple awakenings from sleep. HISTORY OF PRESENT ILLNESS/SLEEP-WAKE EVALUATION: SLEEP SCHEDULE: Patient's usual sleep schedule from 11 p.m. to 8:30 a.m. FALLING ASLEEP: She does have problems with falling asleep, although no TV in bedroom. DURING SLEEP: She usually sleeps on the side position. According to her , she snores. She wakes up from sleep 2 times with nocturia, has episodes of dry mouth, restless legs and sweating. She may experience some pain in her legs, arms and shoulders and subsequently she may have a significant amount of movements during the sleep. DURING THE DAY/SLEEP WAKE EVALUATION: In the morning the patient wakes up tired, falling asleep during the day, worries about her sleep, has problems with irritability, depression, anxiety and occasionally concentration. [place] Sleepiness Scale is in very high range of 18. The patient may take one nap a day around 3:30/4:00 p.m. with possibly episodes of vivid dreams during naps. No history of hypnagogic hallucinations, sleep paralysis or cataplexy. PAST MEDICAL HISTORY: Positive for heart problems, diabetes mellitus, hearing loss and visual problems. PAST SURGICAL HISTORY: Aortic valve replacement for aortic stenosis, thyroidectomy for thyroid CA, appendectomy, multiple eye surgeries. MEDICATIONS: Cymbalta 60 mg twice a day, losartan once a day, metoprolol 25 mg once a day, Zetia 25 mg once a day, aspirin 81 mg once a day, Humalog, multiple eye drops. SOCIAL HISTORY: Negative for smoking, alcohol consumption occasional. FAMILY HISTORY: during sleep by her father, hypertension. REVIEW OF SYSTEMS: Awakenings from sleep, sleepiness during the day. PHYSICAL EXAMINATION: GENERAL: A pleasant -[place] lady without distress. BP 145/75, HR 66, RR 15, height 5 feet and 2 inches, weight 153.2, body mass index 27.9, temperature 97.7, oxygen saturation at room air 98%. HEENT: Oropharynx-low position of soft palate, Mallampati 3. The patient has bad vision and hearing loss. NECK: Supple, no JVD. Thyroid is not palpable. LUNGS: Clear to percussion and to auscultation. Good air exchange. No wheezing or rhonchi. HEART: S1, S2 regular. No murmurs, gallops, or rubs. ABDOMEN: Soft and nontender. Bowel sounds are present. No organomegaly appreciated. EXTREMITIES: No clubbing or cyanosis. ENTRY LEVEL PROGRAMMER: Awake, alert, and oriented X3. Cranial nerves 2 to 7 intact. There is no fasciculation or atrophy. noted. No focal deficits observed. IMPRESSION: 1. Snoring, low position of soft palate, awakenings from sleep, possible obstructive sleep apnea-hypopnea syndrome. 2. Significant excessive daytime sleepiness. [place] Sleepiness Scale is 18. Positive history of vivid dreams during naps. Differential diagnosis should include hypersomnia and narcolepsy without cataplexy. 3. Hearing loss. 4. Vision problems status post 37 eye surgeries. 5. Status post aortic valve replacement with cow valve for aortic stenosis. 6. History of thyroid CA, status post thyroidectomy. 7. Restless leg symptoms. 8. Diabetes mellitus. PLAN: 1. Polysomnogram for evaluation of patient breathing during sleep to check for possibility of periodic limb movements with following multiple sleep latency test if sleep study will be negative for any physical abnormalities of sleep for objective evaluation of her symptoms of excessive daytime sleepiness. It will be difficult to proceed with a home sleep apnea test because of hearing loss and visual difficulties. 2. Following plan after reviewing results of sleep studies. 3. Sleep hygiene with regular time in bed for 7-1/2 to 8 hours. 4. Precautions related to driving. No driving if feeling sleepiness. Thank you very much for referring this patient for consultation. Sincerely, Mode Cruz MD, PhD, FAASM Diplomat of [place] [employer] Sleep Medicine Board of [place] [employer] [facility] [employer] [facility] [place] MMODL / IJN: [id number] /
== END ==
LOC: SLEEP 11:44
PROVIDERS: ATTEND Internal Medicine
DX: G47.10 Hypersomnia, unspecified (principal); H91.90 Unspecified hearing loss, unspecified ear; H53.9 Unspecified visual disturbance; Z85.850 Personal history of malignant neoplasm of thyroid; Z90.89 Acquired absence of other organs; G25.81 Restless legs syndrome; E11.9 Type 2 diabetes mellitus without complications; Z79.4 Long term (current) use of insulin; Z79.82 Long term (current) use of aspirin; Z95.2 Presence of prosthetic heart valve
CPT/HCPCS: 99211

== ENCOUNTER 2021-03-03 21:31 | Emergency (ER) | payer MEDICARE ==
[2021-03-03 21:35] LABS: Glucose,Whole Blood 105 mg/dL (75-99)
[2021-03-03 21:44] VITALS: TEMP 97.9
--- NOTE | 2021-03-03 22:17 | ED ---
Recheck HPI - General Chief Complaint: Recheck/Abnormal Lab/Rx Stated Complaint: Hypoglycemia Time Seen by Provider: 03/03/21 21:47 Source: patient, EMS, RN notes reviewed, old records reviewed Mode of arrival: EMS Limitations: no limitations - History of Present Illness Initial Comments: This is a 71-year-old female to the ER today. Patient is presented today for evaluation regards to not feeling well. Patient felt preterminal prior to EMS call was found to have low blood sugar was replaced patient able to eat well she is here in the ER. Patient states is having recurrent issues since her about a month ago. She states she's been trying to eat as her normal diet she is not losing any significant weight has had no recent m edication changes. No fever cough congestion or diarrhea no other complaints MD Complaint: abnormal lab (Low blood sugar) -: hour(s) Returns Today for: Called Because of Abnormal Lab/Test Symptoms Since Prior Visit: no new symptoms Context: called for abnormal lab result (Patient called EMS to not feeling well) Associated Symptoms: malaise Treatments Prior to Arrival: other medications - Related Data Home Medications Medication Instructions Recorded Confirmed DULoxetine HCL [Cymbalta] 60 mg PO BID 09/30/13 03/03/21 Losartan [Cozaar] 25 mg PO HS 03/17/15 03/03/21 Levothyroxine Sodium [Synthroid] 200 mcg PO DAILY 11/18/15 03/03/21 Aspirin EC [Ecotrin Low Dose] 81 mg PO HS 04/25/18 03/03/21 Brimonidine Tartrate [Alphagan P 1 drop RIGHT EYE TID 04/25/18 03/03/21 0.1% Ophth Soln] Dorzolamide 2% [Trusopt 2%] 1 drop RIGHT EYE TID 04/25/18 03/03/21 Insulin Degludec [Tresiba 6 units SQ HS 04/25/18 03/03/21 Flextouch U-100 Pen] Latanoprost [Xalatan 0.005%] 1 drop RIGHT EYE HS 04/25/18 03/03/21 Ezetimibe [Zetia] 10 mg PO HS 03/03/21 03/03/21 Insulin Aspart [NovoLOG Flexpen] See Protocol SQ AC-TID 01/19/22 01/19/22 Metoprolol Succinate [Toprol XL] 50 mg PO HS 03/03/21 03/03/21 Allergies Allergy/AdvReac Type Severity Reaction Status Date / Time No Known Allergies Allergy Verified 03/03/21 22:45 Review of Systems ROS Statement: Those systems with pertinent positive or pertinent negative responses have been documented in the HPI. ROS Other: All systems not noted in ROS Statement are negative. Past Medical History Past Medical History: Asthma, Coronary Artery Disease (CAD), Cancer, Diabetes Mellitus, Eye Disorder, Hearing Disorder / Deafness, Hypertension, Thyroid Disorder Additional Past Medical History / Comment(s): Pt born with PDA and has surgery as an , IDDM type II, L eye removed/glass d/t scarring, R eye with limited vision/ legally blind, L ear deaf, R ear with hearing aide, thyroid cancer with surgery, IBS, constipation, hemoptysis espesically with activity, migraines, sinus problems. History of Any Multi-Drug Resistant Organisms: None Reported Past Surgical History: Appendectomy, Cardiac Valve Replacement, Section, Heart Catheterization, Tubal Ligation Additional Past Surgical History / Comment(s): Aortic valve replacement, PDA surgery to close, multiple eye surgeries/L eye enucleation, bronchoscopy with BAL, EGD, colonoscopy, D&C Past Anesthesia/Blood Transfusion Reactions: Family History of Problems w/ Anesthesia, Postoperative Nausea & Vomiting (PONV) Additional Past Anesthesia/Blood Transfusion Reaction / Comment(s): PATIENT AND BOTH HER PARENTS ALSO HAD PONV Past Psychological History: Anxiety, Depression Past Alcohol Use History: Occasional Past Drug Use History: None Reported - Past Family History Father Family Medical History: Diabetes Mellitus, Renal Disease Additional Family Medical History / Comment(s): FATHER AT AGE 78 IN HIS SLEEP Mother Family Medical History: Dementia Additional Family Medical History / Comment(s): MOTHER AT AGE 78 YRS. General Exam Limitations: no limitations General appearance: alert, in no apparent distress Head exam: Present: atraumatic, normocephalic, normal inspection Eye exam: Present: normal appearance, PERRL, EOMI. Absent: scleral icterus, conjunctival injection, periorbital swelling ENT exam: Present: normal exam, mucous membranes moist Neck exam: Present: normal inspection. Absent: tenderness, meningismus, lymphadenopathy Respiratory exam: Present: normal lung sounds bilaterally. Absent: respiratory distress, wheezes, rales, rhonchi, stridor Cardiovascular Exam: Present: regular rate, normal rhythm, normal heart sounds. Absent: systolic murmur, diastolic murmur, rubs, gallop, clicks GI/Abdominal exam: Present: soft, normal bowel sounds. Absent: distended, tenderness, guarding, rebound, rigid Extremities exam: Present: normal inspection, full ROM, normal capillary refill. Absent: tenderness, pedal edema, joint swelling, calf tenderness Back exam: Present: normal inspection Neurological exam: Present: alert, oriented X3, CN II-XII intact Psychiatric exam: Present: normal affect, normal mood Skin exam: Present: warm, dry, intact, normal color. Absent: rash Course Vital Signs 03/03/21 21:41 Temperature 97.9 F Pulse Rate 68 Respiratory 16 Rate Blood Pressure 194/69 O2 Sat by Pulse 98 Oximetry - Reevaluation(s) Reevaluation #1: 03/03/21 23:00 Medical record was reviewed Reevaluation #2: 03/03/21 23:00 Patient continues to feel well here in the ER Reevaluation #3: 03/03/21 23:00 Patient informed of results and questions have been answered Medical Decision Making - Medical Decision Making 71 female to the ER for evaluation of low blood sugar. Patient was given both oral glucose as well as able to eat here in the ER. Patient feeling improved and can be discharged home - Lab Data Lab Results 03/03/21 03/03/21 Range/Units 21:33 22:43 POC Glucose (mg/dL) 105 H 210 H (75-99) mg/dL POC Glu [employer] Roque Vidales Kyle Disposition Clinical Impression: Hypoglycemia Disposition: HOME SELF-CARE Condition: Good Instructions (If sedation given, give patient instructions): Hypoglycemia in a Person with Diabetes (ED) Is patient prescribed a controlled substance at d/c from ED?: No Referrals: Beau Palmer DO [Primary Care Provider] - 1-2 days
[2021-03-03 22:45] LABS: Glucose,Whole Blood 210 mg/dL (75-99)
[2021-03-03 23:47] LABS: Glucose,Whole Blood 328 mg/dL (75-99)
[2021-03-04 00:04] VITALS: BP 164/79; PULSE 78; RESP 15
== END 2021-03-04 00:12 | disposition home or self-care (01) ==
LOC: EC 21:31
DX: E11.649 Type 2 diabetes mellitus with hypoglycemia without coma (principal); E07.9 Disorder of thyroid, unspecified; I10 Essential (primary) hypertension; J45.909 Unspecified asthma, uncomplicated; I25.10 Atherosclerotic heart disease of native coronary artery without angina pectoris; H54.8 Legal blindness, as defined in USA; Z79.899 Other long term (current) drug therapy; Z79.890 Hormone replacement therapy; Z79.4 Long term (current) use of insulin
CPT/HCPCS: 36415; 99284

== ENCOUNTER 2021-03-10 04:23 | Observation (INO) | payer MEDICARE ==
[2021-03-10 04:58] LABS: Basophils % (A) 1 %; Eosinophils # (A) 0.3 k/uL (0-0.7); Eosinophils % (A) 4 %; HCT 38.4 % (34.0-46.0); HGB 12.9 gm/dL (11.4-16.0); Lymphocytes # (A) 1.5 k/uL (1.0-4.8); Lymphocytes % (A) 21 %; MCH 29.3 pg (25.0-35.0); MCHC 33.6 g/dL (31.0-37.0); MCV 87.3 fL (80.0-100.0); Mean Platelet Volume 7.2; Monocytes # (A) 0.4 k/uL (0-1.0); Monocytes % (A) 6 %; Neutrophils # (A) 4.6 k/uL (1.3-7.7); Neutrophils % (A) 66 %; Platelet Count 292 k/uL (150-450); RDW 13.9 % (11.5-15.5); WBC 6.9 k/uL (3.8-10.6)
--- NOTE | 2021-03-10 05:07 | XR ---
EXAM: XR Chest, 2 Views CLINICAL HISTORY: ITS.REASON XR Reason: Chest Pain TECHNIQUE: Frontal and lateral views of the chest. COMPARISON: Comparison made to prior chest x-ray from April 25, 2018. FINDINGS: Lungs: There is mild to moderate peribronchial thickening of the central bronchi. No consolidation. Pleural space: Unremarkable. No pneumothorax. Heart: Status post aortic valve replacement. Mild cardiomegaly. Mediastinum: Unremarkable. Bones/joints: Status post median sternotomy with sternal wires intact. IMPRESSION: Findings concerning for bronchitis. No consolidation.
--- NOTE | 2021-03-10 05:08 | ED ---
General Adult HPI - General Chief complaint: Chest Pain Stated complaint: Chest Pain Time Seen by Provider: 03/10/21 04:42 Source: patient Mode of arrival: EMS Limitations: no limitations - History of Present Illness Initial comments: Patient is a 71-year-old woman who presents to be evaluated for left shoulder pain radiating to left arm. The patient states that things started around 11 PM when she was trying to go to sleep. She began to have sharp pains in the left shoulder. She indicates the left trapezius area and left paraspinal neck muscles. Patient indicates that the pain spreads down the lateral aspect of the left arm. She also indicates the left chest wall. The patient did not have any associated anginal symptoms. Patient declines analgesia at initial history and physical. Patient denies any injury at onset, stating that she was in bed. Onset/Timin -: hour(s) Location: neck, back, left, upper extremity Radiation: extremity Quality: stabbing Consistency: intermittent Improves with: none Worsens with: none Associated Symptoms: denies other symptoms Treatments Prior to Arrival: none - Related Data Home Medications Medication Instructions Recorded Confirmed DULoxetine HCL [Cymbalta] 60 mg PO BID 09/30/13 03/03/21 Losartan [Cozaar] 25 mg PO HS 03/17/15 03/03/21 Levothyroxine Sodium [Synthroid] 200 mcg PO DAILY 11/18/15 03/03/21 Aspirin EC [Ecotrin Low Dose] 81 mg PO HS 04/25/18 03/03/21 Brimonidine Tartrate [Alphagan P 1 drop RIGHT EYE TID 04/25/18 03/03/21 0.1% Ophth Soln] Dorzolamide 2% [Trusopt 2%] 1 drop RIGHT EYE TID 04/25/18 03/03/21 Insulin Degludec [Tresiba 6 units SQ HS 04/25/18 03/03/21 Flextouch U-100 Pen] Latanoprost [Xalatan 0.005%] 1 drop RIGHT EYE HS 04/25/18 03/03/21 Ezetimibe [Zetia] 10 mg PO HS 03/03/21 03/03/21 Insulin Aspart [NovoLOG Flexpen] See Protocol SQ AC-TID 03/03/21 03/03/21 Metoprolol Succinate [Toprol XL] 50 mg PO HS 03/03/21 03/03/21 Allergies Allergy/AdvReac Type Severity Reaction Status Date / Time No Known Allergies Allergy Verified 03/10/21 04:27 Review of Systems ROS Statement: Those systems with pertinent positive or pertinent negative responses have been documented in the HPI. ROS Other: All systems not noted in ROS Statement are negative. Constitutional: Denies: fever, chills Respiratory: Denies: cough, dyspnea Cardiovascular: Reports: as per HPI, chest pain. 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 History of Any Multi-Drug Resistant Organisms: None Reported Past Surgical History: Appendectomy, Cardiac Valve Replacement, Section, Heart Catheterization, Tubal Ligation Additional Past Surgical History / Comment(s): Aortic valve replacement, PDA surgery to close, multiple eye surgeries/L eye enucleation, bronchoscopy with BAL, EGD, colonoscopy, D&C Past Anesthesia/Blood Transfusion Reactions: Family History of Problems w/ Anesthesia, Postoperative Nausea & Vomiting (PONV) Additional Past Anesthesia/Blood Transfusion Reaction / Comment(s): PATIENT AND BOTH HER PARENTS ALSO HAD PONV Past Psychological History: Anxiety, Depression Smoking Status: Never smoker Past Alcohol Use History: Occasional Past Drug Use History: None Reported - Past Family History Father Family Medical History: Diabetes Mellitus, Renal Disease Additional Family Medical History / Comment(s): FATHER AT AGE 78 IN HIS SLEEP Mother Family Medical History: Dementia Additional Family Medical History / Comment(s): MOTHER AT AGE 78 YRS. General Exam General appearance: alert, in no apparent distress Head exam: Present: atraumatic, normocephalic Eye exam: Present: normal appearance. Absent: scleral icterus, conjunctival injection Neck exam: Present: normal inspection, tenderness (Left trapezius and left paraspinal muscles), full ROM. Absent: meningismus Respiratory exam: Present: normal lung sounds bilaterally. Absent: respiratory distress, wheezes, rales, rhonchi, stridor, chest wall tenderness Cardiovascular Exam: Present: regular rate, normal rhythm, normal heart sounds. Absent: systolic murmur, diastolic murmur, rubs, gallop GI/Abdominal exam: Present: soft. Absent: distended, tenderness, guarding, rebound, rigid Extremities exam: Present: normal inspection, normal capillary refill. Absent: pedal edema, calf tenderness Back exam: Present: normal inspection. Absent: CVA tenderness (R), CVA tenderness (L), vertebral tenderness Neurological exam: Present: alert Skin exam: Present: warm, dry, intact, normal color. Absent: rash Course Vital Signs 03/10/21 04:27 Temperature 97.4 F L Pulse Rate 69 Respiratory 19 Rate Blood Pressure 131/75 O2 Sat by Pulse 97 Oximetry EKG Findings - EKG Results: EKG: interpreted by ERMD, sinus rhythm (Rate 69 bpm) - Blocks, [place], Hypertrophy, ST Abn: AV and intraventricular conduction: intraventricular conduction delay QRS axis and voltage: right axis deviation (+90 to +180) Repolarization changes or abnormalities: ST or T wave suggestive of ischemia (Inferior leads) Medical Decision Making - Lab Data Result diagrams: 03/10/21 04:42 Lab Results 03/10/21 Range/Units 04:42 WBC 6.9 (3.8-10.6) k/uL RBC 4.40 (3.80-5.40) m/uL Hgb 12.9 (11.4-16.0) gm/dL Hct 38.4 (34.0-46.0) % MCV 87.3 (80.0-100.0) fL MCH 29.3 (25.0-35.0) pg MCHC 33.6 (31.0-37.0) g/dL RDW 13.9 (11.5-15.5) % Plt Count 292 (150-450) k/uL MPV 7.2 Neutrophils % 66 % Lymphocytes % 21 % Monocytes % 6 % Eosinophils % 4 % Basophils % 1 % Neutrophils # 4.6 (1.3-7.7) k/uL Lymphocytes # 1.5 (1.0-4.8) k/uL Monocytes # 0.4 (0-1.0) k/uL Eosinophils # 0.3 (0-0.7) k/uL Basophils # 0.0 (0-0.2) k/uL Disposition Referrals: Beau Palmer DO [Primary Care Provider] - 1-2 days
[2021-03-10] MEDS ORDERED: NITROGLYCERIN SL TABS 0.4 MG TAB SUBLINGUAL STA (05:10)
[2021-03-10 05:12] LABS: INR 0.9 (<1.2); Partial Thromboplastin Time 23.5 sec (22.0-30.0); Prothrombin Time 10.3 sec (9.0-12.0)
[2021-03-10 05:15] LABS: ALT 56 U/L (4-34); AST 63 U/L (14-36); African American GFR (CKD) >90 (>60 ml/min/1.73 sqM); Albumin 3.6 g/dL (3.5-5.0); Alkaline Phosphatase 41 U/L (38-126); Anion Gap 5 mmol/L; Blood Urea Nitrogen 24 mg/dL (7-17); Calcium 9.5 mg/dL (8.4-10.2); Carbon Dioxide 25 mmol/L (22-30); Chloride 106 mmol/L (98-107); Glucose 175 mg/dL (74-99); Magnesium 1.9 mg/dL (1.6-2.3); Non-African American GFR(CKD) >90 (>60 ml/min/1.73 sqM); Potassium 4.4 mmol/L (3.5-5.1); Sodium 136 mmol/L (137-145); Total Bilirubin 0.5 mg/dL (0.2-1.3); Total Protein 6.5 g/dL (6.3-8.2)
[2021-03-10] MEDS ORDERED: MORPHINE SULFATE 4 MG/ML SYRINGE IV STA (06:45)
[2021-03-10] MEDS ORDERED: NITROGLYCERIN SL TABS 0.4 MG TAB SUBLINGUAL PRN (07:54)
[2021-03-10] MEDS ORDERED: ALBUTEROL NEBULIZED 2.5 MG/3 ML INHALATION PRN (09:47)
--- NOTE | 2021-03-10 10:44 | P.CRDCN ---
History of Present Illness History of present illness: HISTORY OF PRESENTING ILLNESS This is a pleasant 71-year-old female past medical history significant for hypertension, hypothyroidism, hyperlipidemia, type 2 diabetes, severe aortic stenosis status post aortic valve replacement in 2013, PDA repair as an infant. She follows in the office with Dr. Chung. We have been asked to see in consultation for chest. Patient is seen and examined in the emergency department. She states last night around 11 PM she had pain in the left side of her neck, shoulder, left side and left arm pain and some left arm numbness. She denies any chest pain. She states she was trying to go to sleep and felt these sharp pains majority in her left neck muscles and left shoulder. She has pain with movement and palpation of her neck, left shoulder and arm. She has significant tenderness to palpation to the area. She has some tenderness to palpation to the left side of her chest underneath her arm. She denies shortness of breath, lightheadedness, dizziness, syncope or near-syncope, symptoms of orthopnea or PND. She has some relief in her pain with IV Morphine. DIAGNOSTICS EKG reveals sinus rhythm, heart rate 69, T wave inversion in lead III, and AvF, poor R wave progresion. Prior EKG in 2019 with similar findings Chest xray mild to moderate peribronchial thickening of the central bronchi, concerning for bronchitis. Status post aortic valve replacement. Laboratory reviewed, troponin negative 2, d-dimer negative, COVID-19 negative, CBC unremarkable, sodium 136, potassium 4.4, BUN 24, serum creatinine 0.5 Current home medications include Zetia 10 mg nightly, aspirin 81 mg daily, Toprol succinate 50 mg daily, losartan 25 mg daily, Synthroid, insulin Most recent echocardiogram 11/2019 in the office with an EF of 45%, biological AV prosthesis, moderate mitral regurgitation, mild tricuspid regurgitation Most recent stress test 2019 revealed no evidence of stress-induced ischemia. REVIEW OF SYSTEMS At the time of my exam: CONSTITUTIONAL: Denies fever or chills. CARDIOVASCULAR: Denies chest pain, shortness of breath, orthopnea, PND or palpi tations. RESPIRATORY: Denies cough. GASTROINTESTINAL: Denies abdominal pain, diarrhea, constipation, nausea or vomiting. MUSCULOSKELETAL: +left sided neck, shoulder and arm pain NEUROLOGIC: Denies numbness, tingling, headacbe or weakness. ENDOCRINE: Denies fatigue, weight change, polydipsia or polyurina. GENITOURINARY: Denies burning, hematuria or urgency with micturation. HEMATOLOGIC: Denies history of anemia or bleeding. PHYSICAL EXAMINATION Blood pressure 142/65, heart rate 75, afebrile, saturations 96% on room air CONSTITUTIONAL: No apparent distress. HEENT: Head is normocephalic. Pupils are equal, round. Sclerae anicteric. Mucous membranes of the mouth are moist. No JVD. No carotid bruit. Significant left sided neck/shoulder pain. CHEST EXAMINATION: Lungs are clear to auscultation. There is some chest wall tenderness is noted on palpation to left side. HEART EXAMINATION: Regular rate and rhythm. S1, S2 heard. No murmurs, gallops or rub. ABDOMEN: Soft, nontender. Positive bowel sounds. EXTREMITIES: 2+ peripheral pulses, no lower extremity edema and no calf tenderness. Tenderness to movement of left arm. NEUROLOGIC EXAMINATION: Patient is awake, alert and oriented x3. ASSESSMENT Non-cardiac chest pain, appears to be musculoskeletal on exam Left neck and shoulder pain Severe aortic stenosis status post aortic valve replacement in 2013 Hypertension Hypothyroidism Hyperlipidemia Type 2 diabetes PDA repair as an infant. PLAN An acute coronary event has been ruled out with no EKG evidence of ischemia and negative cardiac enzymes. Patient with symptoms of left sided arm, shoulder and neck pain with palpation and movement Continue home cardiac medications No further inpatient workup at this time. We will follow the patient as needed. Patient to follow up with Dr. Chung as an outpatient Nurse Practitioner note has been reviewed, I agree with a documented findings and plan of care. Patient was seen and examined. 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 History of Any Multi-Drug Resistant Organisms: None Reported Past Surgical History: Appendectomy, Cardiac Valve Replacement, Section, Heart Catheterization, Tubal Ligation Additional Past Surgical History / Comment(s): Aortic valve replacement, PDA surgery to close, multiple eye surgeries/L eye enucleation, bronchoscopy with BAL, EGD, colonoscopy, D&C Past Anesthesia/Blood Transfusion Reactions: Family History of Problems w/ Anesthesia, Postoperative Nausea & Vomiting (PONV) Additional Past Anesthesia/Blood Transfusion Reaction / Comment(s): PATIENT AND BOTH HER PARENTS ALSO HAD PONV Past Psychological History: Anxiety, Depression Smoking Status: Never smoker Past Alcohol Use History: Occasional Past Drug Use History: None Reported - Past Family History Father Family Medical History: Diabetes Mellitus, Renal Disease Additional Family Medical History / Comment(s): FATHER AT AGE 78 IN HIS SLEEP Mother Family Medical History: Dementia Additional Family Medical History / Comment(s): MOTHER AT AGE 78 YRS. Medications and Allergies Home Medications Medication Instructions Recorded Confirmed Type DULoxetine HCL [Cymbalta] 60 mg PO BID 09/30/13 03/10/21 History Losartan [Cozaar] 25 mg PO HS 03/17/15 03/10/21 History Levothyroxine Sodium [Synthroid] 200 mcg PO DAILY 11/18/15 03/10/21 History Aspirin EC [Ecotrin Low Dose] 81 mg PO HS 04/25/18 03/10/21 History Brimonidine Tartrate [Alphagan P 1 drop RIGHT EYE TID 04/25/18 03/10/21 History 0.1% Ophth Soln] Dorzolamide 2% [Trusopt 2%] 1 drop RIGHT EYE TID 04/25/18 03/10/21 History Latanoprost [Xalatan 0.005%] 1 drop RIGHT EYE HS 04/25/18 03/10/21 History Ezetimibe [Zetia] 10 mg PO HS 03/03/21 03/10/21 History Metoprolol Succinate [Toprol XL] 50 mg PO HS 03/03/21 03/10/21 History Albuterol Inhaler [Ventolin Hfa 2 puff INHALATION RT-QID PRN 03/10/21 03/10/21 History Inhaler] Budesonide-Formot 160-4.5 Mcg 2 puff INHALATION RT-BID 03/10/21 03/10/21 History [Symbicort 160-4.5 Mcg Inhaler] Glucagon [Gvoke Pfs 1-Pack Syringe] 1 mg SQ ONCE PRN 03/10/21 03/10/21 History Insulin Glargine,Hum.rec.anlog 4 units SQ HS 03/10/21 03/10/21 History [Toujeo Solostar] Insulin Lispro [humaLOG Kwikpen] See Protocol SQ ACHS 03/10/21 03/10/21 History Allergies Allergy/AdvReac Type Severity Reaction Status Date / Time No Known Allergies Allergy Verified 03/10/21 08:45 Physical Exam Vitals: Vital Signs Temp Pulse Resp BP Pulse Ox 03/10/21 08:53 75 18 142/65 96 03/10/21 07:00 66 20 147/70 98 03/10/21 04:27 97.4 F L 69 19 131/75 97 Intake and Output 03/09/21 03/10/21 03/10/21 22:59 06:59 14:59 Other: Weight 67.132 kg Results 03/10/21 04:42 03/10/21 04:42 Cardiac Enzymes 03/10/21 03/10/21 03/10/21 Range/Units 04:42 04:42 08:52 AST 63 H (14-36) U/L Troponin I <0.012 <0.012 (0.000-0.034) ng/mL Coagulation 03/10/21 Range/Units 04:42 PT 10.3 (9.0-12.0) sec APTT 23.5 (22.0-30.0) sec CBC 03/10/21 Range/Units 04:42 WBC 6.9 (3.8-10.6) k/uL RBC 4.40 (3.80-5.40) m/uL Hgb 12.9 (11.4-16.0) gm/dL Hct 38.4 (34.0-46.0) % Plt Count 292 (150-450) k/uL Comprehensive Metabolic Panel 03/10/21 Range/Units 04:42 Sodium 136 L (137-145) mmol/L Potassium 4.4 (3.5-5.1) mmol/L Chloride 106 (98-107) mmol/L Carbon Dioxide 25 (22-30) mmol/L BUN 24 H (7-17) mg/dL Creatinine 0.56 (0.52-1.04) mg/dL Glucose 175 H (74-99) mg/dL Calcium 9.5 (8.4-10.2) mg/dL AST 63 H (14-36) U/L ALT 56 H (4-34) U/L Alkaline Phosphatase 41 (38-126) U/L Total Protein 6.5 (6.3-8.2) g/dL Albumin 3.6 (3.5-5.0) g/dL Current Medications Generic Name Dose Route Start Last Admin Trade Name Freq PRN Reason Stop Dose Admin Albuterol Sulfate 2.5 mg 03/10/21 09:47 Albuterol Nebulized 2.5 Mg/3 Ml INHALATION RT-QID PRN Shortness Of Breath Aspirin 81 mg 03/11/21 09:00 Aspirin 81 Mg PO DAILY APARNA Brimonidine Tartrate 1 drops 03/10/21 16:00 Brimonidine Tartrate 0.2% Drops 5 Ml Btl RIGHT EYE TID [facility] Budesonide/Formoterol Fumarate 2 puff 03/10/21 20:00 Symbicort 160-4.5 Mcg Inhaler INHALATION RT-BID APARNA Dorzolamide HCl 1 drops 03/10/21 16:00 Dorzolamide Hcl 2% Drops 10 Ml Btl RIGHT EYE TID [facility] Duloxetine HCl 60 mg 03/10/21 21:00 Duloxetine Hcl 60 Mg Capsule.Dr PO BID [facility] Ezetimibe 10 mg 03/10/21 21:00 Ezetimibe 10 Mg Tab PO HS [facility] Heparin Sodium (Porcine) 5,000 unit 03/10/21 16:00 Heparin Sodium,Porcine/Pf 5,000 Unit/0.5 Ml Syringe SQ Q8HR [facility] Insulin Detemir 4 unit 03/10/21 21:00 Insulin Detemir (Levemir) 100 Unit/Ml Syr SQ HS [facility] Latanoprost 1 drops 03/10/21 21:00 Latanoprost 0.005% Ophth Drops 2.5 Ml Btl RIGHT EYE HS [facility] Levothyroxine Sodium 200 mcg 03/11/21 06:30 Levothyroxine [address] [place] [address] [facility] Losartan Potassium 25 mg 03/10/21 21:00 Losartan 25 Mg Tab PO HS [facility] Metoprolol Succinate 50 mg 03/10/21 21:00 Metoprolol Succinate (Er) 50 Mg Tab.Er.24h PO HS [facility] Nitroglycerin 0.4 mg 03/10/21 07:54 Nitroglycerin Sl Tabs 0.4 Mg Tab SUBLINGUAL Q5M PRN Chest Pain Sodium Chloride 10 ml 03/10/21 09:00 03/10/21 08:43 Sodium Chloride 0.9% Flush 10 Ml Syringe IV 10 ml BID [facility] Administration Intake and Output 03/09/21 03/10/21 03/10/21 22:59 06:59 14:59 Other: Weight 67.132 kg 03/10/21 04:42 03/10/21 04:42
--- NOTE | 2021-03-10 12:12 | P.HPIM ---
History of Present Illness H&P Date: 03/10/21 Chief Complaint: Chest pain Patient is a 71-year-old female with a known history of aortic valve replacement in 2013, born with PDA status post surgery, diabetes type 2, left eye removed and right eye legally blind, hypothyroidism, IBS, anxiety/depression and other multiple medical problems presents to ER with complaints of left-sided neck pain, shoulder pain and left upper chest pain started around 11 PM while she just laid on the bed to sleep. Presents with some dizziness. She felt sickness in the stomach and nauseated. Patient did take nitroglycerin tablet without much relief. She did take another nitroglycerin tablet. EMS was called due to severe pain. Patient was brought to the hospital. Patient was given IV morphine in the ER and did seem to improve her pain. Chest x-ray showed findings concerning for bronchitis. No consolidation. EKG showed normal sinus rhythm. Laboratory showed WBC nine 6.9 hemoglobin 12.9 and platelets 292 D-dimer level is 0.51 Sodium 136 potassium 4.4 chloride 106 bicarb is 25 BUN 24 and creatinine 0.56 blood sugar is 175 AST 63 ALT 56 alk phos 41 and troponin x2 - and coronavirus PCR not detected. Review of Systems Constitutional: Patient denies any fever or chills . No generalized weakness or weight loss. Abdomen: Patient denied nausea vomiting and diarrhea and abdominal pain. Cardiovascular: patient did have left shoulder pain, chest pain and no short of breath no palpitations. Respiratory: patient denied any cough is from production. No shortness of breath Neurologic: Patient denied any numbness or tingling headache. Musculoskeletal: Patient denies any complaints of joint swelling or deformity. Skin: Negative Psychiatric: Negative Endocrine: No heat or cold intolerance. No recent weight gain. Genitourinary: No dysuria or hematuria. 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 History of Any Multi-Drug Resistant Organisms: None Reported Past Surgical History: Appendectomy, Cardiac Valve Replacement, Section, Heart Catheterization, Tubal Ligation Additional Past Surgical History / Comment(s): Aortic valve replacement, PDA surgery to close, multiple eye surgeries/L eye enucleation, bronchoscopy with BAL, EGD, colonoscopy, D&C Past Anesthesia/Blood Transfusion Reactions: Family History of Problems w/ Anesthesia, Postoperative Nausea & Vomiting (PONV) Additional Past Anesthesia/Blood Transfusion Reaction / Comment(s): PATIENT AND BOTH HER PARENTS ALSO HAD PONV Past Psychological History: Anxiety, Depression Smoking Status: Never smoker Past Alcohol Use History: Occasional Past Drug Use History: None Reported - Past Family History Father Family Medical History: Diabetes Mellitus, Renal Disease Additional Family Medical History / Comment(s): FATHER AT AGE 78 IN HIS SLEEP Mother Family Medical History: Dementia Additional Family Medical History / Comment(s): MOTHER AT AGE 78 YRS. Medications and Allergies Home Medications Medication Instructions Recorded Confirmed Type DULoxetine HCL [Cymbalta] 60 mg PO BID 09/30/13 03/10/21 History Losartan [Cozaar] 25 mg PO HS 03/17/15 03/10/21 History Levothyroxine Sodium [Synthroid] 200 mcg PO DAILY 11/18/15 03/10/21 History Aspirin EC [Ecotrin Low Dose] 81 mg PO HS 04/25/18 03/10/21 History Brimonidine Tartrate [Alphagan P 1 drop RIGHT EYE TID 04/25/18 03/10/21 History 0.1% Ophth Soln] Dorzolamide 2% [Trusopt 2%] 1 drop RIGHT EYE TID 04/25/18 03/10/21 History Latanoprost [Xalatan 0.005%] 1 drop RIGHT EYE HS 04/25/18 03/10/21 History Ezetimibe [Zetia] 10 mg PO HS 03/03/21 03/10/21 History Metoprolol Succinate [Toprol XL] 50 mg PO HS 03/03/21 03/10/21 History Albuterol Inhaler [Ventolin Hfa 2 puff INHALATION RT-QID PRN 03/10/21 03/10/21 H istory Inhaler] Budesonide-Formot 160-4.5 Mcg 2 puff INHALATION RT-BID 03/10/21 03/10/21 History [Symbicort 160-4.5 Mcg Inhaler] Glucagon [Gvoke Pfs 1-Pack Syringe] 1 mg SQ ONCE PRN 03/10/21 03/10/21 History Insulin Glargine,Hum.rec.anlog 4 units SQ HS 03/10/21 03/10/21 History [Toujeo Solostar] Insulin Lispro [humaLOG Kwikpen] See Protocol SQ ACHS 03/10/21 03/10/21 History Allergies Allergy/AdvReac Type Severity Reaction Status Date / Time No Known Allergies Allergy Verified 03/10/21 08:45 Physical Exam Vitals: Vital Signs Temp Pulse Resp BP Pulse Ox 03/10/21 08:53 75 18 142/65 96 03/10/21 07:00 66 20 147/70 98 03/10/21 04:27 97.4 F L 69 19 131/75 97 Intake and Output 03/09/21 03/10/21 03/10/21 22:59 06:59 14:59 Other: Weight 67.132 kg PHYSICAL EXAMINATION: Patient is lying in the bed comfortably, no acute distress, awake alert and oriented.. HEENT: Normocephalic. Neck is supple. legally blind right eye and glass left eye. Nostrils clear. Oral cavity is moist. Neck reveals no JVD, carotid bruits, or thyromegaly. CHEST EXAMINATION: Trachea is central. Symmetrical expansion. Lung zelaya clear to auscultation and percussion. CARDIAC: Normal S1, S2 with no gallops. No murmurs ABDOMEN: Soft. Bowel sounds normal. No organomegaly. No abdominal bruits. Extremities: reveal no edema. No clubbing or cyanosis. Left shoulder pain with movement Neurologically awake, alert, oriented x3 with well-coordinated movements. No focal deficits noted Skin: No rash or skin lesions. Psychiatric: Coperative. Nonsuicidal, anxious. Musculoskeletal: No joint swelling or deformity. Normal range of motion. Results CBC & Chem 7: 03/10/21 04:42 03/10/21 04:42 Labs: Abnormal Lab Results - Last 24 Hours (Table) 03/10/21 Range/Units 04:42 Sodium 136 L (137-145) mmol/L BUN 24 H (7-17) mg/dL Glucose 175 H (74-99) mg/dL AST 63 H (14-36) U/L ALT 56 H (4-34) U/L Thrombosis Risk Factor Assmnt - DVT/VTE Prophylaxis DVT/VTE Prophylaxis: Pharmacologic Prophylaxis ordered Assessment and Plan Assessment: Left side shoulder pain, neck pain and chest pain. Likely musculoskeletal pain. Ruled out ACS. History of severe aortic stenosis status post valve replacement in 2013 History of PDA status post surgical repair as an infant. Hypothyroidism Hypertension Diabetes type 2 DVT prophylaxis with heparin subcu. Plan: Patient will be continued on telemetry monitoring. Serial EKG and troponin x2 - . Continue with aspirin, metoprolol and other blood pressure medications including Cozaar. Lipid panel was ordered. Continue with home medications. Cardiology is on board. Chest pain is mainly musculoskeletal and will continue with pain management. Follow-up closely. Time with Patient: Greater than 30
[2021-03-10] MEDS: DORZOLAMIDE HCL 2% DROPS 10 ML BTL RIGHT EYE SCH ×2 (16:57→21:52)
[2021-03-10] MEDS: BRIMONIDINE TARTRATE 0.2% DROPS 5 ML BTL RIGHT EYE SCH ×2 (16:57→21:51)
[2021-03-10] MEDS: HEPARIN SODIUM,PORCINE/PF 5,000 UNIT/0.5 ML SYRINGE SQ SCH ×2 (16:57→23:48)
[2021-03-10 17:15] LABS: Glucose,Whole Blood 311 mg/dL (75-99)
[2021-03-10] MEDS: INSULIN ASPART (NovoLOG) 100 UNIT/ML VIAL SQ SCH ×2 (17:21→20:22)
[2021-03-10 20:07] LABS: Glucose,Whole Blood 314 mg/dL (75-99)
[2021-03-10] MEDS: DULoxetine HCL 60 MG CAPSULE.DR PO SCH (20:21)
[2021-03-10] MEDS: METOPROLOL SUCCINATE (ER) 50 MG TAB.ER.24H PO SCH (20:21)
[2021-03-10] MEDS: EZETIMIBE 10 MG TAB PO SCH (20:22)
[2021-03-10] MEDS: LOSARTAN 25 MG TAB PO SCH (20:22)
[2021-03-10] MEDS: INSULIN DETEMIR (LEVEMIR) 100 UNIT/ML SYR SQ SCH (20:22)
[2021-03-10] MEDS: SYMBICORT 160-4.5 MCG INHALER INHALATION SCH (20:27)
[2021-03-10] MEDS: HYDROcodone/APAP 5-325MG 1 EACH TAB PO PRN (21:49)
[2021-03-10] MEDS: LATANOPROST 0.005% OPHTH DROPS 2.5 ML BTL RIGHT EYE SCH (21:51)
[2021-03-10 23:43] LABS: Glucose,Whole Blood 60 mg/dL (75-99)
[2021-03-11 00:40] LABS: Glucose,Whole Blood 141 mg/dL (75-99)
[2021-03-11] MEDS: LEVOTHYROXINE 100 MCG TAB PO SCH (05:29)
[2021-03-11 07:11] LABS: Glucose,Whole Blood 137 mg/dL (75-99)
[2021-03-11] MEDS ORDERED: ASPIRIN 325 MG TAB PO SCH (09:00)
[2021-03-11] MEDS: DORZOLAMIDE HCL 2% DROPS 10 ML BTL RIGHT EYE SCH ×3 (09:21→21:11)
[2021-03-11] MEDS: BRIMONIDINE TARTRATE 0.2% DROPS 5 ML BTL RIGHT EYE SCH ×3 (09:21→21:10)
[2021-03-11] MEDS: DULoxetine HCL 60 MG CAPSULE.DR PO SCH ×2 (09:23→21:09)
[2021-03-11] MEDS: ASPIRIN 81 MG PO SCH (09:23)
[2021-03-11] MEDS: HEPARIN SODIUM,PORCINE/PF 5,000 UNIT/0.5 ML SYRINGE SQ SCH ×3 (09:23→21:17)
[2021-03-11] MEDS: INSULIN ASPART (NovoLOG) 100 UNIT/ML VIAL SQ SCH ×4 (09:27→21:12)
[2021-03-11] MEDS: SYMBICORT 160-4.5 MCG INHALER INHALATION SCH ×2 (09:36→21:56)
[2021-03-11 10:59] LABS: Basophils # (A) 0.03 X 10*3/uL (0.00-0.10); Basophils % (A) 0.6 %; Eosinophils # (A) 0.25 X 10*3/uL (0.04-0.35); Eosinophils % (A) 4.9 %; HCT 38.5 % (37.2-46.3); HGB 12.5 g/dL (12.0-15.0); Lymphocytes # (A) 1.44 X 10*3/uL (0.90-5.00); Lymphocytes % (A) 28.1 %; MCH 28.7 pg (27.0-32.0); MCHC 32.5 g/dL (32.0-37.0); MCV 88.3 fL (80.0-97.0); Mean Platelet Volume 9.9 fL (9.5-12.2); Monocytes # (A) 0.57 X 10*3/uL (0.20-1.00); Monocytes % (A) 11.1 %; Neutrophils # (A) 2.81 X 10*3/uL (1.80-7.70); Neutrophils % (A) 54.9 %; Platelet Count 287 X 10*3/uL (140-440); RBC 4.36 X 10*6/uL (4.10-5.20); RDW 14.1 % (11.5-14.5); WBC 5.12 X 10*3/uL (4.50-10.00)
[2021-03-11 11:22] LABS: ALT 46 U/L (8-44); AST 31 U/L (13-35); African American GFR (CKD) 102.5 (60.0-200.0); Albumin 3.8 g/dL (3.8-4.9); Albumin/Globulin Ratio 1.81 (1.60-3.17); Alkaline Phosphatase 55 U/L (41-126); Blood Urea Nitrogen 15.4 mg/dL (9.0-27.0); Calcium 9.4 mg/dL (8.7-10.3); Chloride 102 mmol/L (96-109); Chol/HDL Ratio 2.26 Ratio; Globulin 2.1 g/dL (1.6-3.3); Glucose 161 mg/dL (70-110); LDL Cholesterol,Calculated 76.1 mg/dL (0.0-131.0); Non-African American GFR(CKD) 88.4 (60.0-200.0); Potassium 4.7 mmol/L (3.5-5.5); Sodium 140 mmol/L (135-145); Total Protein 5.9 g/dL (6.2-8.2); VLDL Calculation 10.44 mg/dL (5.00-40.00)
[2021-03-11 12:44] LABS: Glucose,Whole Blood 175 mg/dL (75-99)
--- NOTE | 2021-03-11 15:10 | XR ---
Left shoulder HISTORY: Pain 3 views of left shoulder Patient is post median sternotomy. Left shoulder shows decreased mineralization. Alignment, joint spa daksha are maintained. Distal acromion is downturned. There are overlying artifacts. Left lung apex as v isualized is normal. IMPRESSION: No fracture or dislocation. Correlate for impingement.
--- NOTE | 2021-03-11 15:15 | XR ---
Cervical spine HISTORY: Neck pain 5 views of the cervical spine Cervical vertebral bodies show decreased mineralization. There is preserved height. Multilevel spondy losis is present. Loss of disc height at C4-5. Sclerosis is present posterior elements. Retrolisthesi s grade 1 C3-4. The vertebral soft tissues are normal. There is no evident foraminal encroachment. Dena ng apices are unremarkable. Patient is post median sternotomy. There are cervical ribs present. C7-T1 not included. IMPRESSION: Degenerative disc disease and facet arthropathy, osteopenia. Rudimentary cervical ribs.
[2021-03-11 18:28] LABS: Glucose,Whole Blood 271 mg/dL (75-99)
[2021-03-11 20:19] LABS: Glucose,Whole Blood 323 mg/dL (75-99)
[2021-03-11] MEDS: EZETIMIBE 10 MG TAB PO SCH (21:09)
[2021-03-11] MEDS: METOPROLOL SUCCINATE (ER) 50 MG TAB.ER.24H PO SCH (21:09)
[2021-03-11] MEDS: LOSARTAN 25 MG TAB PO SCH (21:10)
[2021-03-11] MEDS: INSULIN DETEMIR (LEVEMIR) 100 UNIT/ML SYR SQ SCH (21:10)
[2021-03-11] MEDS: LATANOPROST 0.005% OPHTH DROPS 2.5 ML BTL RIGHT EYE SCH (21:11)
[2021-03-11] MEDS: HYDROcodone/APAP 5-325MG 1 EACH TAB PO PRN (21:16)
--- NOTE | 2021-03-11 22:27 | P.PN ---
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 Presents with some dizziness. She felt sickness in the stomach and nauseated. Patient did take nitroglycerin tablet without much relief. She did take another nitroglycerin tablet. EMS was called due to severe pain. Patient was brought to the hospital. Patient was given IV morphine in the ER and did seem to improve her pain. Chest x-ray showed findings concerning for bronchitis. No consolidation. EKG showed normal sinus rhythm. Laboratory showed WBC nine 6.9 hemoglobin 12.9 and platelets 292 D-dimer level is 0.51 Sodium 136 potassium 4.4 chloride 106 bicarb is 25 BUN 24 and creatinine 0.56 blood sugar is 175 AST 63 ALT 56 alk phos 41 and troponin x2 - and coronavirus PCR not detected. 03/11/2021 Patient is currently able to sit in a chair. Left-sided neck pain is better and still complaining of left shoulder pain and unable to raise her left hand above the neck. X-ray of the cervical spine showed degenerative disc disease and facet arthropathy and rudimentary cervical ribs. Shoulder x-ray showed left shoulder source decreased mineralization. Correlate for impingement. Patient is being current pain management with Ava 5. Pain is better controlled today. Laboratory data reviewed. Current medications reviewed. Objective - Vital Signs Vital signs: Vital Signs Temp 97.5 F L 03/11/21 15:00 Pulse 75 03/11/21 15:00 Resp 18 03/11/21 15:00 BP 147/73 03/11/21 15:00 Pulse Ox 98 03/11/21 15:00 Intake & Output 03/11/21 03/11/21 03/12/21 06:59 18:59 06:59 Intake Total 360 Balance 360 Intake: Oral 360 Other: Voiding Method Toilet Toilet # Voids 2 1 - Exam PHYSICAL EXAMINATION: Patient is lying in the bed comfortably, no acute distress, awake alert and oriented.. HEENT: Normocephalic. Neck is supple. legally blind right eye and glass left eye. Nostrils clear. Oral cavity is moist. Neck reveals no JVD, carotid bruits, or thyromegaly. CHEST EXAMINATION: Trachea is central. Symmetrical expansion. Lung zelaya clear to auscultation and percussion. CARDIAC: Normal S1, S2 with no gallops. No murmurs ABDOMEN: Soft. Bowel sounds normal. No organomegaly. No abdominal bruits. Extremities: reveal no edema. No clubbing or cyanosis. Left shoulder pain with movement Neurologically awake, alert, oriented x3 with well-coordinated movements. No focal deficits noted Skin: No rash or skin lesions. Psychiatric: Coperative. Nonsuicidal, anxious. Musculoskeletal: No joint swelling or deformity. Normal range of motion. - Labs CBC & Chem 7: 03/11/21 06:27 03/11/21 06:27 Labs: Abnormal Lab Results - Last 24 Hours (Table) 03/10/21 03/10/21 03/11/21 Range/Units 20:05 23:41 00:38 Carbon Dioxide (20.0-27.5) mmol/L BUN/Creatinine Ratio (12.00-20.00) Ratio Glucose (70-110) mg/dL POC Glucose (mg/dL) 314 H 60 L 141 H (75-99) mg/dL ALT (8-44) U/L Total Protein (6.2-8.2) g/dL HDL Cholesterol (40.00-60.00) mg/dL 03/11/21 03/11/21 03/11/21 Range/Units 06:27 06:50 12:42 Carbon Dioxide 28.0 H (20.0-27.5) mmol/L BUN/Creatinine Ratio 22.00 H (12.00-20.00) Ratio Glucose 161 H (70-110) mg/dL POC Glucose (mg/dL) 137 H 175 H (75-99) mg/dL ALT 46 H (8-44) U/L Total Protein 5.9 L (6.2-8.2) g/dL HDL Cholesterol 68.50 H (40.00-60.00) mg/dL 03/11/21 Range/Units 18:15 Carbon Dioxide (20.0-27.5) mmol/L BUN/Creatinine Ratio (12.00-20.00) Ratio Glucose (70-110) mg/dL POC Glucose (mg/dL) 271 H (75-99) mg/dL ALT (8-44) U/L Total Protein (6.2-8.2) g/dL HDL Cholesterol (40.00-60.00) mg/dL Assessment and Plan Assessment: Left side shoulder pain, neck pain and chest pain. Likely musculoskeletal pain. Ruled out ACS. History of severe aortic stenosis status post valve replacement in 2013 History of PDA status post surgical repair as an . Hypothyroidism Hypertension Diabetes type 2 DVT prophylaxis with heparin subcu. Plan: Patient will be continued on telemetry monitoring. Serial EKG and troponin x2 - . Continue with aspirin, metoprolol and other blood pressure medications including Cozaar. Lipid panel showed LDL 76. Continue with home medications. Cardiology is on board. Chest pain is mainly musculoskeletal and will continue with pain management. X-ray shoulder showed possible impingement. Orthopedic surgery was consulted for evaluation..
[2021-03-12 01:00] LABS: Glucose,Whole Blood 53 mg/dL (75-99)
[2021-03-12 01:24] LABS: Glucose,Whole Blood 69 mg/dL (75-99)
[2021-03-12 01:52] LABS: Glucose,Whole Blood 118 mg/dL (75-99)
[2021-03-12 04:18] LABS: Glucose,Whole Blood 132 mg/dL (75-99)
[2021-03-12] MEDS: LEVOTHYROXINE 100 MCG TAB PO SCH (05:42)
[2021-03-12 07:00] LABS: Glucose,Whole Blood 112 mg/dL (75-99)
[2021-03-12] MEDS: INSULIN ASPART (NovoLOG) 100 UNIT/ML VIAL SQ SCH ×2 (07:16→12:54)
[2021-03-12] MEDS: SYMBICORT 160-4.5 MCG INHALER INHALATION SCH (07:31)
[2021-03-12] MEDS: DORZOLAMIDE HCL 2% DROPS 10 ML BTL RIGHT EYE SCH (07:39)
[2021-03-12] MEDS: HEPARIN SODIUM,PORCINE/PF 5,000 UNIT/0.5 ML SYRINGE SQ SCH (07:40)
[2021-03-12] MEDS: DULoxetine HCL 60 MG CAPSULE.DR PO SCH (07:40)
[2021-03-12] MEDS: BRIMONIDINE TARTRATE 0.2% DROPS 5 ML BTL RIGHT EYE SCH (07:40)
[2021-03-12] MEDS: ASPIRIN 81 MG PO SCH (07:40)
[2021-03-12 07:48] LABS: African American GFR (CKD) >90 (>60 ml/min/1.73 sqM); Anion Gap 1 mmol/L; Blood Urea Nitrogen 14 mg/dL (7-17); Calcium 9.6 mg/dL (8.4-10.2); Carbon Dioxide 34 mmol/L (22-30); Chloride 102 mmol/L (98-107); Glucose 120 mg/dL (74-99); Non-African American GFR(CKD) >90 (>60 ml/min/1.73 sqM); Potassium 4.6 mmol/L (3.5-5.1); Sodium 137 mmol/L (137-145)
[2021-03-12 07:55] VITALS: RESP 16
[2021-03-12 08:27] VITALS: BP 144/76; PULSE 69; TEMP 98
--- NOTE | 2021-03-12 08:50 | P.CNOR ---
History of Present Illness - [facility] Consult date: 03/12/21 Consult reason: other (Shoulder pain, neck pain) History of present illness: Patient is a 71-year-old female who has been evaluated [facility] with regards to discomfort involving her neck, bilateral shoulder blades and radiating into the chest. Patient was admitted to [facility] for further workup, it was determined she had no acute cardiac event. She's been followed by internal medicine at the hospital. X-rays have been ordered of the left shoulder along with cervical spine. With her symptoms along with x-ray findings, our orthopedic team was consulted. Patient was evaluated today at bedside, she is resting comfortably in her hospital bed. She seems to be in no acute distress. She states that the discomfort began on Monday of this week. She cannot remember any specific change in her activity level. 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 Patient denies any previous history orthopedic surgery to the cervical spine, bilateral upper extremities, bilateral lower extremities. Patient admits to discomfort in the tops of the bilateral shoulders down into the shoulder blades. She also notes some discomfort radiating into the left upper extremity on the anterior lateral aspect of the arm. She states it mainly stops at the elbow. She had a few occasions of pain shooting past the elbow. She did demonstrate a few occasions of the same symptoms in the right upper extremity, but more consistently on the left. She denies any paresthesias of the bilateral upper extremities at this time. She denies any jose weakness of the bilateral lower extremities. She denies any low back pain. She denies any paresthesias of the bilateral lower extremity. She denies any loss of bowel or bladder function. Patient initially tried taking Tylenol at home this provided no relief. She has been receiving Andrews 5 mg/325 mg with relief since being in the hospital. Patient is a diabetic and takes insulin. Review of Systems Constitutional: Reports as per HPI 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, IDDM type II, L eye removed/glass d/t scarring, R eye with limited vision/glaucoma/ legally blind, L ear deaf, R ear with hearing aide, thyroid cancer with surgery, IBS, constipation, hemoptysis espesically with activity, migraines, sinus problems, pt had covid over 2020. History of Any Multi-Drug Resistant Organisms: None Reported Past Surgical History: Appendectomy, Cardiac Valve Replacement, Section, Heart Catheterization, Tubal Ligation Additional Past Surgical History / Comment(s): Aortic valve replacement, PDA surgery to close, multiple eye surgeries/L eye enucleation, bronchoscopy with BAL, EGD, colonoscopy, D&C Past Anesthesia/Blood Transfusion Reactions: Family History of Problems w/ Anesthesia, Postoperative Nausea & Vomiting (PONV) Additional Past Anesthesia/Blood Transfusion Reaction / Comm: PATIENT AND BOTH HER PARENTS ALSO HAD PONV Smoking Status: Never smoker - Past Family History Father Family Medical History: Diabetes Mellitus, Renal Disease Additional Family Medical History / Comment(s): FATHER AT AGE 78 IN HIS SLEEP Mother Family Medical History: Dementia Additional Family Medical History / Comment(s): MOTHER AT AGE 78 YRS. Medications and Allergies Home Medications Medication Instructions Recorded Confirmed Type DULoxetine HCL [Cymbalta] 60 mg PO BID 09/30/13 03/10/21 History Losartan [Cozaar] 25 mg PO HS 03/17/15 03/10/21 History Levothyroxine Sodium [Synthroid] 200 mcg PO DAILY 11/18/15 03/10/21 History Aspirin EC [Ecotrin Low Dose] 81 mg PO HS 04/25/18 03/10/21 History Brimonidine Tartrate [Alphagan P 1 drop RIGHT EYE TID 04/25/18 03/10/21 History 0.1% Ophth Soln] Dorzolamide 2% [Trusopt 2%] 1 drop RIGHT EYE TID 04/25/18 03/10/21 History Latanoprost [Xalatan 0.005%] 1 drop RIGHT EYE HS 04/25/18 03/10/21 History Ezetimibe [Zetia] 10 mg PO HS 03/03/21 03/10/21 History Metoprolol Succinate [Toprol XL] 50 mg PO HS 03/03/21 03/10/21 History Albuterol Inhaler [Ventolin Hfa 2 puff INHALATION RT-QID PRN 03/10/21 03/10/21 History Inhaler] Budesonide-Formot 160-4.5 Mcg 2 puff INHALATION RT-BID 03/10/21 03/10/21 History [Symbicort 160-4.5 Mcg Inhaler] Glucagon [Gvoke Pfs 1-Pack Syringe] 1 mg SQ ONCE PRN 03/10/21 03/10/21 History Insulin Glargine,Hum.rec.anlog 4 units SQ HS 03/10/21 03/10/21 History [Toujeo Solostar] Insulin Lispro [humaLOG Kwikpen] See Protocol SQ ACHS 03/10/21 03/10/21 History HYDROcodone/APAP 5-325MG [Andrews 1 each PO Q6HR PRN 3 Days #12 tab 03/11/21 Rx 5-325] Allergies Allergy/AdvReac Type Severity Reaction Status Date / Time No Known Allergies Allergy Verified 03/10/21 08:45 Physical Examination Gen: AOx3, NAD VSS stable at this time Integument: Obvious skin changes are noted involving the cervical, thoracic or lumbar spine, this to include erythema or areas of soft tissue swelling Palpation: No obvious tenderness with palpation to the midline or paraspinal region of the cervical, thoracic or lumbar spine. Patient demonstrates no significant tenderness with palpation of the anterior, lateral and posterior shoulder. She demonstrates no tenderness with palpation to the elbow, hand and wrist on the left side ROM: Full range of motion in all major muscle groups the bilateral upper and lower extremities, range of motion is painless Sensory Exam: Senory exam to light touch is intact C5-T1 Senosry exam to light touch is intact L2-S1 Motor: 4+/5 strength of the right upper extremity with shoulder elevation, shoulder abduction, wrist extension, wrist flexion, elbow extension, elbow flexion, cubing machine tender strength 4+/5 strength of the left upper extremity with shoulder elevation, shoulder abduction, elbow extension, elbow flexion. 4+/5 strength appreciated with wrist extension, wrist flexion, cubing machine tender strength 5/5 strength appreciated in the bilateral lower extremities with hip flexion, knee extension, knee flexion, plantar flexion, dorsiflexion, EHL, FHL Reflexes: 2/4 in all UE and LE Negative Kirby's bilaterally Negative Babinski bilaterally Negative clonus bilaterally Results - Labs Labs: Abnormal Lab Results - Last 24 Hours (Table) 03/11/21 03/11/21 03/11/21 Range/Units 06:27 12:42 18:15 Carbon Dioxide 28.0 H (20.0-27.5) mmol/L BUN/Creatinine Ratio 22.00 H (12.00-20.00) Ratio Glucose 161 H (70-110) mg/dL POC Glucose (mg/dL) 175 H 271 H (75-99) mg/dL ALT 46 H (8-44) U/L Total Protein 5.9 L (6.2-8.2) g/dL HDL Cholesterol 68.50 H (40.00-60.00) mg/dL 03/11/21 03/12/21 03/12/21 Range/Units 20:18 00:58 01:21 Carbon Dioxide (20.0-27.5) mmol/L BUN/Creatinine Ratio (12.00-20.00) Ratio Glucose (70-110) mg/dL POC Glucose (mg/dL) 323 H 53 L 69 L (75-99) mg/dL ALT (8-44) U/L Total Protein (6.2-8.2) g/dL HDL Cholesterol (40.00-60.00) mg/dL 03/12/21 03/12/21 03/12/21 Range/Units 01:50 04:16 06:56 Carbon Dioxide 34 H (20.0-27.5) mmol/L BUN/Creatinine Ratio (12.00-20.00) Ratio Glucose 120 H (70-110) mg/dL POC Glucose (mg/dL) 118 H 132 H (75-99) mg/dL ALT (8-44) U/L Total Protein (6.2-8.2) g/dL HDL Cholesterol (40.00-60.00) mg/dL 03/12/21 Range/Units 06:56 Carbon Dioxide (20.0-27.5) mmol/L BUN/Creatinine Ratio (12.00-20.00) Ratio Glucose (70-110) mg/dL POC Glucose (mg/dL) 112 H (75-99) mg/dL ALT (8-44) U/L Total Protein (6.2-8.2) g/dL HDL Cholesterol (40.00-60.00) mg/dL H & H 01/26/22 01/27/22 Range/Units 04:42 06:27 Hgb 12.9 12.5 (11.4-16.0) gm/dL Hct 38.4 38.5 (34.0-46.0) % Coagulation 03/10/21 Range/Units 04:42 INR 0.9 (<1.2) Result Diagrams: 03/11/21 06:27 03/12/21 06:56 - Diagnostic results Shoulder x-ray: report reviewed, image reviewed (Images along with report were reviewed. No acute fractures or dislocations. Downsloping acromion is appreciated. Mild before meals joint arthritis is also noted) Cervical AP/lateral x-ray: report reviewed, image reviewed (Reports and images were reviewed. No acute fractures or dislocations were appreciated. Multilevel spondylosis appreciated, mainly from C3-C4, C4-C5, C5-C6. Report did note mild retrolisthesis of C3-C4) Assessment and Plan Assessment: Cervical spine pain Bilateral upper extremity radiculopathy, mild Multilevel cervical spondylosis Other medical comorbidities Plan: I discussed the case with my attending Dr. Nicholas. No obvious orthopedic surgical emergent intervention needed at this time. Patient will be scheduled to follow up with Dr. Ruiz in the outpatient setting for further evaluation and treatment. Recommend at this time use of anti-inflammatories and possible muscle relaxer for outpatient treatment. Did consider use of a Medrol Dosepak, patient is a insulin-dependent diabetic and she is aware that her sugars would be severely elevated, she would like to avoid that at this time. We discussed icing of the cervical spine along with bilateral shoulders. Activity level modification was discussed Recommending patient hold off on work over the next week or so, and then reevaluate based on her symptoms Other medical specialty recommendations Patient is stable via the orthopedic standpoint for discharge and follow-up on an outpatient basis Time with Patient: Less than 30
[2021-03-12 12:36] LABS: Glucose,Whole Blood 268 mg/dL (75-99)
--- NOTE | 2021-03-15 12:59 | P.DS ---
Providers Date of admission: 03/10/21 08:45 Expected date of discharge: 03/12/21 Attending physician: Trevin Tam Consults: 03/10/21 07:54 Consult Physician Routine Consulting Provider: Dolly Chung Consult Reason/Comments: chest pain Do you want consulting provider notified?: Yes 03/11/21 18:57 Consult Physician Routine Consulting Provider: [facility] Consult Reason/Comments: shoulder xray, ?nerve impingement Do you want consulting provider notified?: Yes Primary care physician: Beau Palmer Hospital Course: Final diagnosis Left side shoulder pain, neck pain and chest pain. Likely musculoskeletal pain. Ruled out ACS. History of severe aortic stenosis status post valve replacement in 2013 History of PDA status post surgical repair as an infant. Hypothyroidism Hypertension Diabetes type 2 DVT prophylaxis Discharge disposition Patient is being discharged in a stable condition with guarded prognosis to home. Patient will follow-up with Dr. Palmer in the outpatient setting upon discharge. Patient is to also follow-up with cardiology Dr. Chung and Dr. Ruiz as scheduled. Total time taken is greater than 35 minutes. Hospital course This is a 71-year-old female who was recently admitted with left-sided neck pain along with shoulder pain and left upper chest pain along with some associated dizziness and nausea and was being closely monitored. Patient was evaluated by cardiology and recommended outpatient follow-up and continue with current medication regimen. Patient also was having some neck and shoulder pain and underwent x-ray evaluation and was evaluated by orthopedics recommending outpatient follow-up and an appointment has been made. Patient reports to improvement in shoulder and neck pain and is requesting to go home today. Currently no reports of chest pain, shortness of breath, or palpitations. Patient is afebrile. No reports of nausea or vomiting and patient is tolerating diet. Patient will be discharged home today. PHYSICAL EXAMINATION: Patient is sitting up in the bed comfortably, no acute distress, awake alert and oriented.. HEENT: Normocephalic. Neck is supple. legally blind right eye and glass left eye. Nostrils clear. Oral cavity is moist. Neck reveals no JVD, carotid bruits, or thyromegaly. CHEST EXAMINATION: Trachea is central. Symmetrical expansion. Lung zelaya clear to auscultation and percussion. CARDIAC: Normal S1, S2 with no gallops. No murmurs ABDOMEN: Soft. Bowel sounds normal. No organomegaly. No abdominal bruits. Extremities: reveal no edema. No clubbing or cyanosis. Left shoulder pain with movement, full range of motion on exam Neurologically awake, alert, oriented x3 with well-coordinated movements. No focal deficits noted Skin: No rash or skin lesions. Psychiatric: Cooperative. Non-suicidal Musculoskeletal: No joint swelling or deformity. Normal range of motion. Please refer to medication reconciliation sheet for a list of medications. Patient Condition at Discharge: Stable Plan - Discharge Summary Discharge Rx Participant: No New Discharge Prescriptions: New HYDROcodone/APAP 5-325MG [Yuma 5-325] 1 each PO Q6HR PRN 3 Days #12 tab PRN Reason: Pain Continue DULoxetine HCL [Cymbalta] 60 mg PO BID Losartan [Cozaar] 25 mg PO HS Levothyroxine Sodium [Synthroid] 200 mcg PO DAILY Latanoprost [Xalatan 0.005%] 1 drop RIGHT EYE HS Aspirin EC [Ecotrin Low Dose] 81 mg PO HS Dorzolamide 2% [Trusopt 2%] 1 drop RIGHT EYE TID Brimonidine Tartrate [Alphagan P 0.1% Ophth Soln] 1 drop RIGHT EYE TID Metoprolol Succinate [Toprol XL] 50 mg PO HS Albuterol Inhaler [Ventolin Hfa Inhaler] 2 puff INHALATION RT-QID PRN PRN Reason: Shortness Of Breath Glucagon [Gvoke Pfs 1-Pack Syringe] 1 mg SQ ONCE PRN PRN Reason: Blood Sugar - Low Insulin Lispro [humaLOG Kwikpen] See Protocol SQ ACHS Ezetimibe [Zetia] 10 mg PO HS Insulin Glargine,Hum.rec.anlog [Toujeo Solostar] 4 units SQ HS Budesonide-Formot 160-4.5 Mcg [Symbicort 160-4.5 Mcg Inhaler] 2 puff INHALATION RT-BID Discharge Medication List DULoxetine HCL [Cymbalta] 60 mg PO BID 09/30/13 [History] Losartan [Cozaar] 25 mg PO HS 03/17/15 [History] Levothyroxine Sodium [Synthroid] 200 mcg PO DAILY 11/18/15 [History] Aspirin EC [Ecotrin Low Dose] 81 mg PO HS 04/25/18 [History] Brimonidine Tartrate [Alphagan P 0.1% Ophth Soln] 1 drop RIGHT EYE TID 04/25/18 [History] Dorzolamide 2% [Trusopt 2%] 1 drop RIGHT EYE TID 04/25/18 [History] Latanoprost [Xalatan 0.005%] 1 drop RIGHT EYE HS 04/25/18 [History] Ezetimibe [Zetia] 10 mg PO HS 03/03/21 [History] Metoprolol Succinate [Toprol XL] 50 mg PO HS 03/03/21 [History] Albuterol Inhaler [Ventolin Hfa Inhaler] 2 puff INHALATION RT-QID PRN 03/10/21 [History] Budesonide-Formot 160-4.5 Mcg [Symbicort 160-4.5 Mcg Inhaler] 2 puff INHALATION RT-BID 03/10/21 [History] Glucagon [Gvoke Pfs 1-Pack Syringe] 1 mg SQ ONCE PRN 03/10/21 [History] Insulin Glargine,Hum.rec.anlog [Toujeo Solostar] 4 units SQ HS 03/10/21 [History] Insulin Lispro [humaLOG Kwikpen] See Protocol SQ ACHS 03/10/21 [History] HYDROcodone/APAP 5-325MG [Yuma 5-325] 1 each PO Q6HR PRN 3 Days #12 tab 03/11/21 [Rx] Follow up Appointment(s)/Referral(s): Dolly Chung MD [STAFF PHYSICIAN] - 03/30/21 2:45 pm (03/30/2021 at 2:45pm [facility]) Beau Palmer DO [Primary Care Provider] - 1-2 days Jim Ruiz DO [Doctor of Osteopathic Medicine] - 03/24/21 9:10 am (03/24/2021 at 9:10am) Activity/Diet/Wound Care/Special Instructions: FOLLOW UP DIRECTED, SOONER IF WORSENING PROBLEMS OR CONCERNS THAT BROUGHT YOU IN. RX FOR NORCO IS IN PATIENT'S CHART Activity Limited until follow-up Continue to monitor blood sugars closely and recommend holding nighttime dose of long-acting insulin if blood sugar is 200 or less discuss with primary care provider about the need for adjustments as blood sugars continue to drop around midnight consistently Continue heart healthy diabetic diet Follow-up with orthopedics as discussed in 1-2 weeks Follow-up cardiology outpatient Follow-up with primary care provider early next week Discharge Disposition: HOME SELF-CARE
== END 2021-03-12 13:45 | disposition home or self-care (01) ==
LOC: EC 04:23 → 6NMEDSUR 08:45
PROVIDERS: ADMIT Hospitalist; ATTEND Hospitalist
DX: M25.512 Pain in left shoulder (principal); R07.89 Other chest pain; M79.602 Pain in left arm; I35.0 Nonrheumatic aortic (valve) stenosis; E03.9 Hypothyroidism, unspecified; I10 Essential (primary) hypertension; E11.9 Type 2 diabetes mellitus without complications; R11.0 Nausea; Z20.822 Contact with and (suspected) exposure to COVID-19; E78.5 Hyperlipidemia, unspecified; R42 Dizziness and giddiness; I25.10 Atherosclerotic heart disease of native coronary artery without angina pectoris; J45.909 Unspecified asthma, uncomplicated; M47.812 Spondylosis without myelopathy or radiculopathy, cervical region; M50.30 Other cervical disc degeneration, unspecified cervical region; M54.10 Radiculopathy, site unspecified; H54.8 Legal blindness, as defined in USA; R04.2 Hemoptysis; H91.93 Unspecified hearing loss, bilateral; K58.9 Irritable bowel syndrome, unspecified; H40.9 Unspecified glaucoma; F41.9 Anxiety disorder, unspecified; F32.A Depression, unspecified; Z79.4 Long term (current) use of insulin; Z79.51 Long term (current) use of inhaled steroids; Z79.82 Long term (current) use of aspirin; Z79.890 Hormone replacement therapy; Z79.899 Other long term (current) drug therapy; Z90.01 Acquired absence of eye; Z86.16 Personal history of COVID-19; Z95.2 Presence of prosthetic heart valve; Z85.850 Personal history of malignant neoplasm of thyroid; Z90.49 Acquired absence of other specified parts of digestive tract; Z86.69 Personal history of other diseases of the nervous system and sense organs; Z87.74 Personal history of (corrected) congenital malformations of heart and circulatory system; Z83.3 Family history of diabetes mellitus; Z84.1 Family history of disorders of kidney and ureter; Z82.0 Family history of epilepsy and other diseases of the nervous system
CPT/HCPCS: 99285; 96374; 96372 ×3; 36415; 94640 ×2; 93005; 85379; 80061; 80053 ×2; 80048; 84443; 83735; 84484; 85025 ×2; 85610; 85730; 87635; 72050; 73030; 71046; G0378 ×3; J2270; J1644 ×3

== ENCOUNTER → 2021-04-08 | Outpatient (CLI) | payer MEDICARE ==
--- NOTE | 2021-04-09 17:25 | MR ---
EXAMINATION TYPE: MR cervical spine wo con DATE OF EXAM: 04/08/2021 COMPARISON: Plain film 03/11/2021 HISTORY: Neck pain going down Left arm to tips of fingers. TECHNIQUE: Multiplanar, multisequence images of the cervical spine were acquired without contrast. C2-C3: No evidence for degenerative disc disease. No disc bulge/herniation or protrusion. No Canal stenosis. Foramina are patent bilaterally. C3-C4: No evidence for degenerative disc disease. No disc bulge/herniation or protrusion. No Canal stenosis. Foramina are patent bilaterally. C4-C5: Posterior extension endplate disc complex causes anterior mass effect on the thecal sac. There is some foraminal encroachment right greater than left due to uncovertebral joint hypertrophy. C5-C6: Right posterior paracentral disc protrusion causes anterior mass effect on the thecal sac. Unc overtebral joint hypertrophy results in some mild right-sided foraminal encroachment C6-C7: Posterior extension endplate disc complex is noted, there is mild anterior mass effect on the thecal sac, uncovertebral joint hypertrophy results in left-sided foraminal encroachment C7-T1: No evidence for degenerative disc disease. No disc bulge/herniation or protrusion. No Canal stenosis. Foramina are patent bilaterally. Cervical segments are intact. There is normal alignment. Cervical spinal cord is of normal signal. Craniovertebral junction relationships are within normal limits. Cervical vertebral bodies show pre served height and alignment, there is mild spondylosis with loss of disc height present at C4-5, some endplate discogenic marrow signal change. No significant spinal stenosis. IMPRESSION: Multilevel degenerative disc disease is mild with multilevel foraminal encroachment as described.
== END | disposition home or self-care (01) ==
LOC: RADMRIMAIN 10:44
PROVIDERS: ATTEND Orthopaedic Surgery
DX: M50.30 Other cervical disc degeneration, unspecified cervical region (principal)
CPT/HCPCS: 72141

== ENCOUNTER 2021-05-13 19:02 | Emergency (ER) | payer MEDICARE ==
[2021-05-13 19:24] VITALS: TEMP 98.1
--- NOTE | 2021-05-13 20:27 | XR ---
EXAMINATION TYPE: XR ankle complete LT DATE OF EXAM: 05/13/2021 7:58 PM INDICATION: Patient age:Female; 71 years old; Reason for study: trip and fall injury, pain COMPARISON: Lower extremity radiograph same day. TECHNIQUE: The left ankle is imaged in 3 projections. FINDINGS: Cortical irregularity to the anterior tibia seen on lateral view only. Additional lucency to the dist al left fibula concerning for nondisplaced fracture. There is associated soft tissue swelling through out the ankle. IMPRESSION: Findings suspicious for distal anterior tibial fracture with cortical irregularity seen on the latera l view only. There is associated soft tissue swelling. Additional lucency through the lateral malleol us/distal fibula likely representing nondisplaced fracture.
--- NOTE | 2021-05-13 20:28 | XR ---
EXAMINATION TYPE: XR foot complete LT DATE OF EXAM: 05/13/2021 7:58 PM INDICATION: Patient age:Female; 71 years old; Reason for study: trip and fall injury, pain; COMPARISON: Lower extremity radiograph same day. TECHNIQUE: The left foot was examined in the AP, oblique, and lateral projections. FINDINGS: Cortical irregularity to the anterior tibia seen on lateral view only. Additional lucency to the dist al left fibula concerning for nondisplaced fracture. There is associated soft tissue swelling through out the ankle. The remainder of the osseous structures within the foot appear intact. Mild plantar calcaneal spurrin g. IMPRESSION: Findings suspicious for distal anterior tibial fracture with cortical irregularity seen on the latera l view only. There is associated soft tissue swelling. Additional lucency through the lateral malleol us/distal fibula likely representing nondisplaced fracture.
[2021-05-13] MEDS ORDERED: SODIUM CHLORIDE 0.9% 500 ML 500 ML IV STA (20:38)
[2021-05-13] MEDS ORDERED: ACETAMINOPHEN TAB 500 MG TAB PO STA (20:43)
--- NOTE | 2021-05-13 20:45 | ED ---
General Adult HPI - General Chief complaint: Syncope Stated complaint: Fall-L ankle pain Time Seen by Provider: 05/13/21 20:30 Source: patient, RN notes reviewed Mode of arrival: wheelchair - History of Present Illness Initial comments: This is a pleasant 71-year-old female presents to the emergency department after sustaining an injury to her left foot and ankle. Patient states that she "fell" although she does not recall why. Patient states she believes she might of had a low blood sugar episode. Patient is insulin-dependent diabetic and states that she does have a history of hypoglycemic episodes. Patient states she started feeling jittery when she was walking around. Patient then felt lightheaded like she was going to pass out. She has no pain. This was unwitnessed. Patient does not believe she hit her head or neck. Patient is not on blood thinners. She denied any preceding symptomology such as chest pain or known lightheadedness. Patient does have chronic visual impairment but no new symptomology. Denies any abdominal pain. No headache, no fever or chills, no changes in vision or hearing, no sore throat or difficulty with speech, no neck pain, no chest pain or shortness of breath, no abdominal pain, no nausea or vomiting, no changes in urination or bowel movements, no numbness or tingling, , no skin rashes or lesions. - Related Data Home Medications Medication Instructions Recorded Confirmed DULoxetine HCL [Cymbalta] 60 mg PO BID 09/30/13 03/10/21 Losartan [Cozaar] 25 mg PO HS 03/17/15 03/10/21 Levothyroxine Sodium [Synthroid] 200 mcg PO DAILY 11/18/15 03/10/21 Aspirin EC [Ecotrin Low Dose] 81 mg PO HS 04/25/18 03/10/21 Brimonidine Tartrate [Alphagan P 1 drop RIGHT EYE TID 04/25/18 03/10/21 0.1% Ophth Soln] Dorzolamide 2% [Trusopt 2%] 1 drop RIGHT EYE TID 04/25/18 03/10/21 Latanoprost [Xalatan 0.005%] 1 drop RIGHT EYE HS 04/25/18 03/10/21 Ezetimibe [Zetia] 10 mg PO HS 03/03/21 03/10/21 Metoprolol Succinate [Toprol XL] 50 mg PO HS 03/03/21 03/10/21 Albuterol Inhaler [Ventolin Hfa 2 puff INHALATION RT-QID PRN 03/10/21 03/10/21 Inhaler] Budesonide-Formot 160-4.5 Mcg 2 puff INHALATION RT-BID 03/10/21 03/10/21 [Symbicort 160-4.5 Mcg Inhaler] Glucagon [Gvoke Pfs 1-Pack Syringe] 1 mg SQ ONCE PRN 03/10/21 03/10/21 Insulin Glargine,Hum.rec.anlog 4 units SQ HS 03/10/21 03/10/21 [Toujeo Solostar] Insulin Lispro [humaLOG Kwikpen] See Protocol SQ ACHS 03/10/21 03/10/21 Previous Rx's Medication Instructions Recorded HYDROcodone/APAP 5-325MG [Neffs 1 each PO Q6HR PRN 3 Days #12 tab 03/11/21 5-325] Allergies Allergy/AdvReac Type Severity Reaction Status Date / Time No Known Allergies Allergy Verified 05/13/21 19:23 Review of Systems ROS Statement: Those systems with pertinent positive or pertinent negative responses have been documented in the HPI. ROS Other: All systems not noted in ROS Statement are negative. 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, IDDM type II, L eye removed/glass d/t scarring, R eye with limited vision/ legally blind, L ear deaf, R ear with hearing aide, thyroid cancer with surgery, IBS, constipation, hemoptysis espesically with activity, migraines, sinus problems, pinched nerve in her neck History of Any Multi-Drug Resistant Organisms: None Reported Past Surgical History: Appendectomy, Cardiac Valve Replacement, Section, Heart Catheterization, Tubal Ligation Additional Past Surgical History / Comment(s): Aortic valve replacement, PDA surgery to close, multiple eye surgeries/L eye enucleation, bronchoscopy with BAL, EGD, colonoscopy, D&C Past Anesthesia/Blood Transfusion Reactions: Family History of Problems w/ Anesthesia, Postoperative Nausea & Vomiting (PONV) Additional Past Anesthesia/Blood Transfusion Reaction / Comment(s): PATIENT AND BOTH HER PARENTS ALSO HAD PONV Past Psychological History: Anxiety, Depression Smoking Status: Never smoker Past Alcohol Use History: Occasional Past Drug Use History: None Reported - Past Family History Father Family Medical History: Diabetes Mellitus, Renal Disease Additional Family Medical History / Comment(s): FATHER AT AGE 78 IN HIS SLEEP Mother Family Medical History: Dementia Additional Family Medical History / Comment(s): MOTHER AT AGE 78 YRS. General Exam - General Exam Comments Initial Comments: Elderly female in no significant distress at the time I'm seeing her. General appearance: alert, in no apparent distress Head exam: Present: atraumatic, normocephalic, normal inspection Eye exam: Present: normal appearance, PERRL, EOMI. Absent: scleral icterus, conjunctival injection, periorbital swelling ENT exam: Present: normal exam, normal oropharynx, mucous membranes dry, mucous membranes moist Neck exam: Present: normal inspection, full ROM. Absent: tenderness, meningismus, lymphadenopathy Respiratory exam: Present: normal lung sounds bilaterally. Absent: respiratory distress, wheezes, rales, rhonchi, stridor, chest wall tenderness, accessory muscle use Cardiovascular Exam: Present: regular rate, normal rhythm, normal heart sounds. Absent: systolic murmur, diastolic murmur, rubs, gallop, clicks GI/Abdominal exam: Present: soft, normal bowel sounds. Absent: distended, tenderness, guarding, rebound, rigid Extremities exam: Present: normal inspection, tenderness (Patient has tenderness to the area of the lateral malleolus. No break in skin integrity. Pedal pulses are intact. Remainder of the musculoskeletal examination is benign. Full range of motion all major joints.), normal capillary refill. Absent: pedal edema, joint swelling, calf tenderness Back exam: Present: normal inspection, full ROM. Absent: tenderness, CVA tenderness (R), CVA tenderness (L), muscle spasm, paraspinal tenderness, vertebral tenderness Neurological exam: Present: alert, oriented X3, CN II-XII intact. Absent: altered, motor sensory deficit Psychiatric exam: Present: normal affect, normal mood Skin exam: Present: warm, dry, intact, normal color. Absent: rash Course Vital Signs 05/13/21 19:18 Temperature 98.1 F Pulse Rate 66 Respiratory 19 Rate Blood Pressure 158/80 O2 Sat by Pulse 98 Oximetry - Reevaluation(s) Reevaluation #1: 05/13/21 22:46 Medical record is reviewed Symptoms are improved here in the emergency department Patient is informed of results and questions answered Patient in no distress Patient neurologically intact. Cranial nerves II through XII grossly intact. Patient alert and oriented 4. Distal neurovascular status intact on extremity check. EKG Findings - EKG Comments: EKG Findings:: EKG done at 9:07 PM and read by the ED attending physician reveals left bundle branch block which was seen on the previous study. No evidence of concordance. No other acute changes. Rate of 65. Other intervals are within normal limits. Procedures - Orthopedic Splinting/Casting Injury #1 Side: left Lower Extremity Injury Location: short leg (Short leg OCL applied by meposterior mold), ankle Lower Extremity Immobilizer: Rodo wrap, fiberglass cast Other Orthopedic Equipment: walker Additional Comments: Neurovascular status intact both pre-and post-application Medical Decision Making - Medical Decision Making Patient believes she had a low blood sugar episode. She felt jittery, lightheaded, felt like she is going to pass out. This was unwitnessed. Patient CT of the brain answerable spine show no acute findings. Chest x-ray shows possible bronchitis although the patient has no respiratory symptoms or cough. No evidence of infectious process. Patient's Monegasque syncope score is 1 but only because she has a pre-existing left bundle-branch block with a widened QRS interval. This was unchanged from the previous study. Suspect that this was a low blood sugar episode. We will provide the patient with a walker and follow- up instructions. Patient to call her regular physician tomorrow morning as she has had multiple hypoglycemic episodes in the past. The case was discussed in detail with ED attending physician. Presentation, findings, treatment plan discussed in detail. Patient was told to return to the ER for any signs or symptoms worsen. Told to return immediately if any other problems arise. All questions answered. Treatment plan discussed. Patient in agreement Every effort has been made to ensure accuracy of this dictation. However, due to the limitations of electronic medical records and dictation devices, errors in charting still occur. Patient did well with the walker. However, in order a knee scooter for the patient. I did offer admission to the patient. Patient states she wants to go home. Patient is of sound mind, able to make her own medical decisions. We did discuss risks versus benefits. Patient was discharged shared decision-making. Patient fully understands that she can return here at any time. Patient is alert 4, neurologically intact. Patient will be given follow-up with orthopedics. Patient should also call her regular physician in the morning. Patient does have help at home. - Lab Data Result diagrams: 05/13/21 21:22 05/13/21 21:22 Lab Results 05/13/21 05/13/21 05/13/21 Range/Units 21:22 21:22 21:22 WBC 7.1 (3.8-10.6) k/uL RBC 4.69 (3.80-5.40) m/uL Hgb 13.5 (11.4-16.0) gm/dL Hct 42.4 (34.0-46.0) % MCV 90.5 (80.0-100.0) fL MCH 28.8 (25.0-35.0) pg MCHC 31.8 (31.0-37.0) g/dL RDW 14.2 (11.5-15.5) % Plt Count 270 (150-450) k/uL MPV 7.0 Neutrophils % 88 % Lymphocytes % 6 % Monocytes % 4 % Eosinophils % 1 % Basophils % 1 % Neutrophils # 6.2 (1.3-7.7) k/uL Lymphocytes # 0.5 L (1.0-4.8) k/uL Monocytes # 0.3 (0-1.0) k/uL Eosinophils # 0.1 (0-0.7) k/uL Basophils # 0.0 (0-0.2) k/uL Sodium 138 (137-145) mmol/L Potassium 3.6 (3.5-5.1) mmol/L Chloride 108 H (98-107) mmol/L Carbon Dioxide 20 L (22-30) mmol/L Anion Gap 10 mmol/L BUN 19 H (7-17) mg/dL Creatinine 0.79 (0.52-1.04) mg/dL Est GFR (CKD-EPI)AfAm 89 (>60 ml/min/1.73 sqM) Est GFR (CKD-EPI)NonAf 77 (>60 ml/min/1.73 sqM) Glucose 153 H (74-99) mg/dL Calcium 9.2 (8.4-10.2) mg/dL Magnesium 1.9 (1.6-2.3) mg/dL Total Bilirubin 0.5 (0.2-1.3) mg/dL AST 31 (14-36) U/L ALT 33 (4-34) U/L Alkaline Phosphatase 64 (38-126) U/L Troponin I <0.012 (0.000-0.034) ng/mL NT-Pro-B Natriuret Pep pg/mL Total Protein 7.1 (6.3-8.2) g/dL Albumin 4.3 (3.5-5.0) g/dL 05/13/21 Range/Units 21:22 WBC (3.8-10.6) k/uL RBC (3.80-5.40) m/uL Hgb (11.4-16.0) gm/dL Hct (34.0-46.0) % MCV (80.0-100.0) fL MCH (25.0-35.0) pg MCHC (31.0-37.0) g/dL RDW (11.5-15.5) % Plt Count (150-450) k/uL MPV Neutrophils % % Lymphocytes % % Monocytes % % Eosinophils % % Basophils % % Neutrophils # (1.3-7.7) k/uL Lymphocytes # (1.0-4.8) k/uL Monocytes # (0-1.0) k/uL Eosinophils # (0-0.7) k/uL Basophils # (0-0.2) k/uL Sodium (137-145) mmol/L Potassium (3.5-5.1) mmol/L Chloride (98-107) mmol/L Carbon Dioxide (22-30) mmol/L Anion Gap mmol/L BUN (7-17) mg/dL Creatinine (0.52-1.04) mg/dL Est GFR (CKD-EPI)AfAm (>60 ml/min/1.73 sqM) Est GFR (CKD-EPI)NonAf (>60 ml/min/1.73 sqM) Glucose (74-99) mg/dL Calcium (8.4-10.2) mg/dL Magnesium (1.6-2.3) mg/dL Total Bilirubin (0.2-1.3) mg/dL AST (14-36) U/L ALT (4-34) U/L Alkaline Phosphatase (38-126) U/L Troponin I (0.000-0.034) ng/mL NT-Pro-B Natriuret Pep 370 pg/mL Total Protein (6.3-8.2) g/dL Albumin (3.5-5.0) g/dL Disposition Clinical Impression: Syncope, Traumatic closed nondisplaced fracture of distal end of left fibula, Traumatic closed nondisplaced fracture of distal end of left tibia, Hypoglycemia Disposition: HOME SELF-CARE Condition: Stable Instructions (If sedation given, give patient instructions): Ankle Fracture (ED), Syncope (ED), Splint Care (ED), What to Do if Your Blood Sugar is Low (ED) Additional Instructions: Call the orthopedic physician as well as your regular physician in the morning for follow-up appointment. Tylenol 500 mg every 4-6 hours for pain control. Elevation. Keep the splint on until follow-up. Further prescription for the knee scooter. Discussed possible hypoglycemia with your regular doctor. Follow-up with your regular physician as directed. Return to the ER immediately if any symptoms worsen, new symptoms arise, or any other problems develop. Is patient prescribed a controlled substance at d/c from ED?: No Referrals: Ellen Fairbanks DO [Doctor of Osteopathic Medicine] - 1-2 days Beau Palmer DO [Primary Care Provider] - 05/14/21 8:00 am Time of Disposition: 00:06
--- NOTE | 2021-05-13 21:23 | XR ---
EXAMINATION TYPE: XR chest 1V portable DATE OF EXAM: 05/13/2021 8:56 PM COMPARISON:Multiple radiographs, with the most recent on 03/10/2021. TECHNIQUE: XR chest 1V portable Frontal view of the chest. CLINICAL INDICATION:Female, 71 years old with history of chest pain; FINDINGS: Lungs/Pleura: There is no evidence of pleural effusion, focal consolidation, or pneumothorax. Mild p eribronchial thickening. Pulmonary vascularity: Unremarkable. Heart/mediastinum: Cardiomediastinal silhouette is enlarged and stable. Aortic valve replacement faria ges. Musculoskeletal: No acute osseous pathology. Midline sternotomy wires and surgical clips project over the mediastinum. IMPRESSION: Similar findings suggesting bronchitis.
[2021-05-13 21:43] LABS: Basophils % (A) 1 %; Eosinophils # (A) 0.1 k/uL (0-0.7); Eosinophils % (A) 1 %; HCT 42.4 % (34.0-46.0); HGB 13.5 gm/dL (11.4-16.0); Lymphocytes # (A) 0.5 k/uL (1.0-4.8); Lymphocytes % (A) 6 %; MCH 28.8 pg (25.0-35.0); MCHC 31.8 g/dL (31.0-37.0); MCV 90.5 fL (80.0-100.0); Monocytes # (A) 0.3 k/uL (0-1.0); Monocytes % (A) 4 %; Neutrophils # (A) 6.2 k/uL (1.3-7.7); Neutrophils % (A) 88 %; Platelet Count 270 k/uL (150-450); RBC 4.69 m/uL (3.80-5.40); RDW 14.2 % (11.5-15.5); WBC 7.1 k/uL (3.8-10.6)
[2021-05-13 21:56] LABS: Albumin 4.3 g/dL (3.5-5.0); Calcium 9.2 mg/dL (8.4-10.2); Magnesium 1.9 mg/dL (1.6-2.3); Potassium 3.6 mmol/L (3.5-5.1); Total Bilirubin 0.5 mg/dL (0.2-1.3); Total Protein 7.1 g/dL (6.3-8.2)
--- NOTE | 2021-05-13 22:48 | CT ---
EXAMINATION TYPE: CT brain martir sampson con DATE OF EXAM: 05/13/2021 COMPARISON: None HISTORY: fall CT DLP: 1308.4 mGycm Automated exposure control for dose reduction was used. Images of the brain and cervical spine obtained without contrast. There is cerebral atrophy. There is some enlargement of the ventricles. No mass effect or midline barbara ft. There is no sign of intracranial hemorrhage. There is some right anterior temporal scalp mild sof t tissue swelling. The cervical vertebra have normal alignment. There is mild disc space narrowing at C4-5. There is no compression fracture. Facet joints are intact. There is multilevel mild hypertrophic facet arthropath y. Prevertebral soft tissues are intact. There is previous orbital bilateral surgery noted. IMPRESSION: Cerebral atrophy. Mild hydrocephalus. Minor degenerative changes in the cervical spine at C4-5. No ac kita intracranial abnormality. No acute abnormality of the cervical spine.
[2021-05-14 01:04] VITALS: BP 149/74; PULSE 76; RESP 16
== END 2021-05-14 01:16 | disposition home or self-care (01) ==
LOC: EC 19:02
DX: S82.832A Other fracture of upper and lower end of left fibula, initial encounter for closed fracture (principal); S82.302A Unspecified fracture of lower end of left tibia, initial encounter for closed fracture; R55 Syncope and collapse; E11.649 Type 2 diabetes mellitus with hypoglycemia without coma; I10 Essential (primary) hypertension; J45.909 Unspecified asthma, uncomplicated; I25.10 Atherosclerotic heart disease of native coronary artery without angina pectoris; F32.A Depression, unspecified; F41.9 Anxiety disorder, unspecified; Z79.82 Long term (current) use of aspirin; Z79.4 Long term (current) use of insulin; Z79.51 Long term (current) use of inhaled steroids; Z79.890 Hormone replacement therapy; Z79.899 Other long term (current) drug therapy; W19.XXXA Unspecified fall, initial encounter
CPT/HCPCS: 36415; 70450; 71045; 72125; 80053; 83735; 83880; 84484; 85025; 93005; 99284

== ENCOUNTER → 2022-01-07 | Outpatient (CLI) | payer MEDICARE ==
[2022-01-07 11:42] LABS: African American GFR (CKD) >90 (>60 ml/min/1.73 sqM); Blood Urea Nitrogen 11 mg/dL (7-17); Non-African American GFR(CKD) >90 (>60 ml/min/1.73 sqM)
--- NOTE | 2022-01-07 13:35 | CT ---
EXAMINATION TYPE: CT abdomen pelvis w con DATE OF EXAM: 01/07/2022 COMPARISON: CT abdomen dated 10/27/[address] abdomen and pelvis dated 11/19/2015 HISTORY: Ventral, left upper abdominal lump CT DLP: 900 mGycm Automated exposure control for dose reduction was used. TECHNIQUE: Helical acquisition of images was performed from the lung bases through the pelvis. CONTRAST: Performed with Oral Contrast and with IV Contrast, patient injected with 70 mL of Isovue 300. FINDINGS: The visualized lung bases are clear. The gallbladder is normal without wall thickening, distention, pericholecystic fluid or gallstones. T here is no biliary ductal dilatation. There is no focal mass or organomegaly involving the liver, pancreas, spleen or adrenal glands. The kidneys excrete contrast promptly and symmetrically solid renal mass or process. There is a small simple cortical cyst of the right kidney which is stable compared to the prior study. There is no re troperitoneal adenopathy or hemorrhage in the caliber the abdominal aorta is normal. The bowel is normal in caliber is no evidence of dilatation or obstruction. There is a small midline ventral hernia containing one small bowel loop which does not appear strangulated, inflamed or dilate d. There are no inflammatory changes within the mesentery and there is no free intraperitoneal air or fl uid. The pelvis is normal without mass, adenopathy, abscess or free fluid. No focal lytic or blastic osseous abnormalities are seen. IMPRESSION: Small ventral hernia containing a single small bowel loop with no other significant abnormality as de scribed.
== END | disposition home or self-care (01) ==
LOC: RADCTMAIN 10:48
PROVIDERS: ATTEND Family Medicine
DX: K43.9 Ventral hernia without obstruction or gangrene (principal)
CPT/HCPCS: 82565; 84520; 74177; 36415; Q9967 ×2

== ENCOUNTER → 2022-05-05 | Day surgery (SDC) | payer MEDICARE ==
[2022-05-03 17:43] VITALS: BMI 26.4
[~2022-05-05] MED LIST: ACETAMINOPHEN TAB 500 MG TAB ONE; ACETAMINOPHEN TAB 500 MG TAB PO ONE; ACETAMINOPHEN TAB 500 MG TAB PO STA; BUPIVACAIN-EPI 0.25%-1:200,000 30 ML VIAL SQ ONE; DEXAMETHASONE SOD PHOSPHATE 4 MG/ML 1 ML VIAL IV ONE; GLYCOPYRROLATE 0.2 MG/ML 2 ML VIAL ONE; HEPARIN SODIUM,PORCINE/PF 5,000 UNIT/0.5 ML SYRINGE SQ PRN; HYDROmorphone (PF) 1 MG/ML ONE; LIDOCAINE 1% (10MG/ML) FOR IV START INTRADERMA PRN; LIDOCAINE 2% INJ 20 MG/ML (2 ML VIAL) ONE; METOPROLOL TARTRATE 5 MG/5 ML VIAL IVP ONE; MIDAZOLAM 2 MG/2 ML VIAL IVP ONE; NEOSTIGMINE 1 MG/ML 10 ML VIAL ONE; ONDANSETRON 4 MG/2 ML VIAL IVP ONE; PROPOFOL 10 MG/ML 20 ML VIAL IV ONE; ROCURONIUM 10 MG/ML (5 ML VIAL) IV ONE; ROPIVACAINE 5 MG/ML 30 ML VIAL ONE; SIMETHICONE 80 MG CHEWABLE PO ONE; ePHEDrine 50 MG/ML 1 ML VIAL ONE; fentaNYL (PF) 50 MCG/ML 2 ML AMP ONE
--- NOTE | 2022-05-05 08:55 | P.GSHP ---
History of Present Illness H&P Date: 05/05/22 CHIEF COMPLAINT: Ventral hernia. HISTORY OF PRESENT ILLNESS: The patient is a 72-year-old female who presents with swelling along the abdomen for over 3 month with pain and tenderness. Findings were consistent with ventral hernia. She reports change in bowel habits as a result. Now she presents for further evaluation and management. PAST MEDICAL HISTORY: Please see list and reviewed. PAST SURGICAL HISTORY: Please see list and reviewed. MEDICATIONS: Please see list and reviewed. ALLERGIES: Please see list and reviewed. SOCIAL HISTORY: Please see list and reviewed. FAMILY HISTORY: No reports of Crohn disease or ulcerative colitis. REVIEW OF ORGAN SYSTEMS: CONSTITUTIONAL: No reports of fevers or chills. GI: Denies any blood in stools or constipation. HEENT: Denies any trouble with vision, hearing or nosebleeds. No difficulty swallowing. LYMPHATIC: The patient denies any lumps and bumps around the neck. ENDOCRINE: Denies any thyroid disorders. Denies any blood sugar glucose intolerance. RESPIRATORY: Denies pneumonia. Denies any troubles with breathing or dyspnea on exertion. CARDIOVASCULAR: Denies any chest pain, palpitations, or recent heart attacks. GENITOURINARY: Denies any blood in urine or increased urinary frequency. MUSCULOSKELETAL: Denies any back pain, stiffness, joint arthritis. NEUROLOGIC: Denies any numbness or tingling along the distal extremities. No seizure disorders or headaches. PSYCHIATRIC: Has depression. No suidical ideation. HEMATOLOGIC: Denies any abnormal bleeding or bruising. BREASTS: Denies any breast lumps, pain or nipple discharge. PHYSICAL EXAM: VITAL SIGNS: Stable GENERAL: Well-developed pleasant female in no acute distress. HEENT: No scleral icterus. Extraocular movements grossly intact. Moist buccal mucosa. NECK: Supple without lymphadenopathy. CHEST: Unlabored respirations. Equal bilateral excursions. CARDIOVASCULAR: Regular rate and rhythm. Distal 2+ pulses. ABDOMEN: Soft, nondistended. Tender along the abdomen. Protuberant. MUSCULOSKELETAL: No clubbing, cyanosis, or edema. SKIN: Well perfused. PSYCH: Alert and oriented. No focal or lateralizing signs. ASSESSMENT: 1. Ventral hernia. PLAN: 1. Recommend proceeding with robotic ventral hernia repair with mesh. 2. Benefits and risks of surgical intervention was discussed including possibility of open technique. 3. DVT prophylaxis. 4. Antibiotic prophylaxis. 5. Non-narcotic pain managment reviewed. 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, IDDM type II, L eye prosthesis, R eye with limited vision/ legally blind, L ear deaf, R ear with hearing aide, thyroid cancer with surgery, IBS, constipation, hemoptysis espesically with activity, migraines, sinus problems, pinched nerve in her neck History of Any Multi-Drug Resistant Organisms: None Reported Past Surgical History: Appendectomy, Cardiac Valve Replacement, Section, Heart Catheterization, Tubal Ligation Additional Past Surgical History / Comment(s): Aortic valve replacement, PDA surgery, multiple eye surgeries/L eye enucleation, bronchoscopy with BAL, EGD, colonoscopy, D&C, thyroidectomy Past Anesthesia/Blood Transfusion Reactions: Family History of Problems w/ Anesthesia, Postoperative Nausea & Vomiting (PONV) Additional Past Anesthesia/Blood Transfusion Reaction / Comment(s): PATIENT AND BOTH HER PARENTS ALSO HAD PONV Past Psychological History: Anxiety, Depression Smoking Status: Never smoker Past Alcohol Use History: Occasional Additional Past Alcohol Use History / Comment(s): OCCASIONAL GLASS OF WINE. Past Drug Use History: None Reported - Past Family History Father Family Medical History: Diabetes Mellitus, Renal Disease Additional Family Medical History / Comment(s): FATHER AT AGE 78 IN HIS SLEEP Mother Family Medical History: Dementia Additional Family Medical History / Comment(s): MOTHER AT AGE 78 YRS. Medications and Allergies Home Medications Medication Instructions Recorded Confirmed Type DULoxetine HCL [Cymbalta] 60 mg PO BID 09/30/13 05/03/22 History Losartan [Cozaar] 25 mg PO HS 03/17/15 05/03/22 History Levothyroxine Sodium [Synthroid] 200 mcg PO DAILY 11/18/15 05/03/22 History Aspirin EC [Ecotrin Low Dose] 81 mg PO HS 04/25/18 05/03/22 History Brimonidine Tartrate [Alphagan P 1 drop RIGHT EYE TID 04/25/18 05/03/22 History 0.1% Ophth Soln] Dorzolamide 2% [Trusopt 2%] 1 drop RIGHT EYE TID 04/25/18 05/03/22 History Latanoprost [Xalatan 0.005%] 1 drop RIGHT EYE HS 04/25/18 05/03/22 History Ezetimibe [Zetia] 10 mg PO HS 03/03/21 05/03/22 History Metoprolol Succinate [Toprol XL] 50 mg PO HS 03/03/21 05/03/22 History Albuterol Inhaler [Ventolin Hfa 2 puff INHALATION RT-QID PRN 03/10/21 05/03/22 History Inhaler] Budesonide-Formot 160-4.5 Mcg 2 puff INHALATION RT-BID 03/10/21 05/03/22 History [Symbicort 160-4.5 Mcg Inhaler] Glucagon [Gvoke Pfs 1-Pack Syringe] 1 mg SQ ONCE PRN 03/10/21 05/03/22 History Insulin Glargine,Hum.rec.anlog 6 units SQ HS 03/10/21 05/03/22 History [[place]] Insulin Lispro [humaLOG Kwikpen] See Protocol SQ ACHS 03/10/21 05/03/22 History Gabapentin 300 mg PO TID 05/03/22 05/03/22 History Nitroglycerin 0.4 mg SL DIRECTED PRN 05/03/22 05/03/22 History acetaZOLAMIDE [Diamox Sequels] 500 mg PO BID 05/03/22 05/03/22 History Allergies Allergy/AdvReac Type Severity Reaction Status Date / Time No Known Allergies Allergy Verified 05/03/22 17:27
[2022-05-05] MEDS: LACTATED RINGERS 1,000 ML IV SCH ×2 (12:46→14:10)
[2022-05-05 12:47] LABS: Glucose,Whole Blood 107 mg/dL (70-110)
[2022-05-05 12:55] LABS: Basophils % (A) 0 %; Eosinophils # (A) 0.2 k/uL (0-0.7); Eosinophils % (A) 4 %; HCT 36.4 % (34.0-46.0); HGB 12.4 gm/dL (11.4-16.0); Lymphocytes # (A) 1.2 k/uL (1.0-4.8); Lymphocytes % (A) 29 %; MCH 28.9 pg (25.0-35.0); MCHC 34.1 g/dL (31.0-37.0); MCV 84.6 fL (80.0-100.0); Mean Platelet Volume 7.3; Monocytes # (A) 0.3 k/uL (0-1.0); Monocytes % (A) 7 %; Neutrophils # (A) 2.4 k/uL (1.3-7.7); Neutrophils % (A) 57 %; Platelet Count 232 k/uL (150-450); RDW 13.6 % (11.5-15.5); WBC 4.1 k/uL (3.8-10.6)
[2022-05-05 13:12] LABS: ALT 25 U/L (4-34); AST 28 U/L (14-36); African American GFR (CKD) >90 (>60 ml/min/1.73 sqM); Albumin 3.8 g/dL (3.5-5.0); Alkaline Phosphatase 43 U/L (38-126); Anion Gap 6 mmol/L; Blood Urea Nitrogen 18 mg/dL (7-17); Calcium 8.8 mg/dL (8.4-10.2); Carbon Dioxide 28 mmol/L (22-30); Chloride 103 mmol/L (98-107); Glucose 110 mg/dL (74-99); Non-African American GFR(CKD) >90 (>60 ml/min/1.73 sqM); Potassium 3.8 mmol/L (3.5-5.1); Sodium 137 mmol/L (137-145); Total Bilirubin 0.9 mg/dL (0.2-1.3); Total Protein 6.3 g/dL (6.3-8.2)
--- NOTE | 2022-05-05 14:58 | P.ANPRN ---
Procedure Note - Anesthesia - Nerve Block Performed Bilateral Erector Spinae Single Date of Procedure: 05/05/22 Procedure Start Time: 13:10 Procedure Stop Time: 13:15 Location of Patient: PreOp Indication: Acute Post-Operative Pain, Requested by Surgeon Sedation Type: Sedate with meaningful contact maintained Position: Prone Needle Gauge: 20 Ultrasound used to visualize needle placement: Yes Ultrasound used to observe medication spread: Yes Injectate: 0.5% Ropivacaine (see comment for volume) (30) Blood Aspirated: No Pain Paresthesia on Injection Noted: No Resistance on Injection: Normal Image Stored and Saved: Yes Events: Uneventful and Well Tolerated
[2022-05-05 16:06] VITALS: TEMP 96.9
[2022-05-05] MEDS: HYDROmorphone 0.5 MG/0.5 ML SYRINGE IVP PRN ×2 (16:17→16:34)
[2022-05-05 18:29] LABS: Glucose,Whole Blood 167 mg/dL (70-110)
[2022-05-05 19:11] VITALS: RESP 16
[2022-05-05 19:43] VITALS: BP 129/72; PULSE 72
--- NOTE | 2022-05-10 10:28 | P.OP ---
Date of Procedure: 05/05/22 Description of Procedure: SURGEON: LEXUS GRAHAM MD PREOPERATIVE DIAGNOSES: 1. Initial ventral hernia without incarceration 2. Coronary artery disease 3. History of aortic valvular replacement 4. Cardiac catheterization 5. History of patent ductus arteriosus, PDA 6. Asthma 7. Tubal ligation 8. section 9. Left eye enucleation 10. Diabetes type 2 with nephropathy 11. Postop nausea and vomiting 12. Hypertensive heart disease 13. Legally blind 14. Bilateral deafness 15. History of thyroid cancer 16. Generalized anxiety disorder 17. Depressive disorder POSTOPERATIVE DIAGNOSES: 1. Initial ventral hernia without incarceration, 2.5 cm 2. Coronary artery disease 3. History of aortic valvular replacement 4. Cardiac catheterization 5. History of patent ductus arteriosus, PDA 6. Asthma 7. Tubal ligation 8. section 9. Left eye enucleation 10. Diabetes type 2 with nephropathy 11. Postop nausea and vomiting 12. Hypertensive heart disease 13. Legally blind 14. Bilateral deafness 15. History of thyroid cancer 16. Generalized anxiety disorder 17. Depressive disorder 18. Peritoneal adhesions, right lower quadrant OPERATION: 1. Robotic-assisted da Eric Xi laparoscopic lysis of adhesions, right lower quadrant 2. Robotic-assisted da Eric Xi laparoscopic repair of initial reducible epigastric ventral hernia 2.5-cm, without mesh Anesthesia: GETA, regional, local Estimated Blood Loss (ml): 5 Pathology: 1. Incarcerated upper midline ventral hernia defect COMPLICATIONS: None. Operative Findings: 1. Upper midline epigastric ventral hernia defect 2.5 x 2.5 cm 2. Fascia repaired using #1 V-lock suture 3. Right lower quadrant adhesions, omentum to abdominal wall lysed INDICATIONS: The patient is a 72-year-old female who presents with symptomatic swelling along the abdomen consistent with ventral hernia. Due to her multiple comorbidities, patient was high risk with cardiac risk assessment obtained. Surgical intervention with laparoscopic versus robotic and open techniques were reviewed. Placement of mesh was also reviewed. Benefits and risks were thoroughly described. Informed consent was obtained. DESCRIPTION OF PROCEDURE: The patient was brought into the operating room and laid in supine position. After general induction, the abdomen had been prepped and draped in standard sterile fashion. Ioban draping was also placed. Prior to incision, a timeout protocol was confirmed with surgical team regarding the patient's name including procedures to be performed. The robot was primed prior to the procedure. A field block using local anesthetic was placed along hernia site including the proposed port sites. Initial incision was made with an #11 blade along the left upper quadrant. A 0 degree 5 mm laparoscopic trocar entry was performed and insufflated. Three 8 mm ports were placed along the left lateral abdominal wall under direct localization after exchanging the 5-mm for an 8 mm port. Placements of the ports were 15 cm from the target anatomy and 10 cm apart. An accessory 12 mm port was placed at the right upper quadrant for exchange of mesh including sutures. The da Eric Xi robot was previously primed, prepped and draped then docked from the right side of the patient onto the left side of the patient. I then sat at the robot Da Eric Xi console where working arms of the robot including Bovie cautery connected to robotic scissors, needle guard driver, and graspers placed by the assistant administrator. Adhesions along the right lower quadrant was identified rgeater omentum to abdominal wall from her prior appendectomy. Adhesions were addressed and lysed using scissors. Hernia defect of 2.5 cm x 2.5 cm along the supraumbilical area was identified. The peritoneal fat was cleared of the abdominal wall. The hernia defect was oversewn using #1 nonabsorbable V-lock suture. Fascial indication 3 was performed. Mesh repair was avoided due to intra-abdominal adhesions identified from prior surgery. A final endoscopic imaging was obtained. All instruments and pneumoperitoneum were evacuated from the abdominal cavity. The da Eric Xi robot was undocked from the patient. I re-scrubbed into the case for closure of incisions. The fascia of the 12-mm port was closed using Carlos Carney and 0 Vicryl. The incisions were reapproximated using 4-0 Monocryl in an interrupted subcuticular fashion. Liquid glue was applied to the skin after cleansing the skin with normal saline and dilute hydrogen peroxide. An abdominal binder was placed. At the end of the procedure, needle, sponge, and instrument count had been verified correct by surgical garment assembly supervisor. The patient was taken to the postanesthesia care unit in stable condition. Plan - Discharge Summary Discharge Rx Participant: No New Discharge Prescriptions: New Simethicone [Gas-X] 125 mg PO AC-TID PRN #20 capsule PRN Reason: Pain Acetaminophen Tab [Tylenol Tab] 1,000 mg PO Q6HR PRN #30 tablet PRN Reason: Pain Continue DULoxetine HCL [Cymbalta] 60 mg PO BID Losartan [Cozaar] 25 mg PO HS Levothyroxine Sodium [Synthroid] 200 mcg PO DAILY Latanoprost [Xalatan 0.005%] 1 drop RIGHT EYE HS Aspirin EC [Ecotrin Low Dose] 81 mg PO HS Dorzolamide 2% [Trusopt 2%] 1 drop RIGHT EYE TID Brimonidine Tartrate [Alphagan P 0.1% Ophth Soln] 1 drop RIGHT EYE TID Metoprolol Succinate [Toprol XL] 50 mg PO HS Albuterol Inhaler [Ventolin Hfa Inhaler] 2 puff INHALATION RT-QID PRN PRN Reason: Shortness Of Breath Glucagon [Gvoke Pfs 1-Pack Syringe] 1 mg SQ ONCE PRN PRN Reason: Blood Sugar - Low Insulin Lispro [humaLOG Kwikpen] See Protocol SQ ACHS Nitroglycerin 0.4 mg SL DIRECTED PRN PRN Reason: Angina Ezetimibe [Zetia] 10 mg PO HS Insulin Glargine,Hum.rec.anlog [Toujeo Solostar] 6 units SQ HS Budesonide-Formot 160-4.5 Mcg [Symbicort 160-4.5 Mcg Inhaler] 2 puff INHALATION RT-BID acetaZOLAMIDE [Diamox Sequels] 500 mg PO BID Gabapentin 300 mg PO TID Discharge Medication List DULoxetine HCL [Cymbalta] 60 mg PO BID 09/30/13 [History] Losartan [Cozaar] 25 mg PO HS 03/17/15 [History] Levothyroxine Sodium [Synthroid] 200 mcg PO DAILY 11/18/15 [History] Aspirin EC [Ecotrin Low Dose] 81 mg PO HS 04/25/18 [History] Brimonidine Tartrate [Alphagan P 0.1% Ophth Soln] 1 drop RIGHT EYE TID 04/25/18 [History] Dorzolamide 2% [Trusopt 2%] 1 drop RIGHT EYE TID 04/25/18 [History] Latanoprost [Xalatan 0.005%] 1 drop RIGHT EYE HS 04/25/18 [History] Ezetimibe [Zetia] 10 mg PO HS 03/03/21 [History] Metoprolol Succinate [Toprol XL] 50 mg PO HS 03/03/21 [History] Albuterol Inhaler [Ventolin Hfa Inhaler] 2 puff INHALATION RT-QID PRN 03/10/21 [History] Budesonide-Formot 160-4.5 Mcg [Symbicort 160-4.5 Mcg Inhaler] 2 puff INHALATION RT-BID 03/10/21 [History] Glucagon [Gvoke Pfs 1-Pack Syringe] 1 mg SQ ONCE PRN 03/10/21 [History] Insulin Glargine,Hum.rec.anlog [Toujeo Solostar] 6 units SQ HS 03/10/21 [History] Insulin Lispro [humaLOG Kwikpen] See Protocol SQ ACHS 03/10/21 [History] Gabapentin 300 mg PO TID 05/03/22 [History] Nitroglycerin 0.4 mg SL DIRECTED PRN 05/03/22 [History] acetaZOLAMIDE [Diamox Sequels] 500 mg PO BID 05/03/22 [History] Acetaminophen Tab [Tylenol Tab] 1,000 mg PO Q6HR PRN #30 tablet 05/05/22 [Rx] Simethicone [Gas-X] 125 mg PO AC-TID PRN #20 capsule 05/05/22 [Rx] Follow up Appointment(s)/Referral(s): Lexus Graham MD [STAFF PHYSICIAN] - 05/10/22 (TELEHEALTH ONLY Please be advised that the office will be closed temporarily from May 09 to May 30. ) Patient Instructions/Handouts: *[facility] - Anesthesia Discharge Instructions, *[facility] - Managing Your Pain After Surgery Without Opioids, Laparoscopic Herniorrhaphy (DC), Laparoscopic Herniorrhaphy (IP) Activity/Diet/Wound Care/Special Instructions: DO NOT REMOVE UMBILICAL DRESSING. Using antibacterial soap. No lifting over 4 pounds 4 weeks, June 05June shower. No bathtub soaks for 2 weeks, May 19 Wear abdominal binder daily for comfort except for showering. Use ice along incisions for today to prevent swelling. Take tylenol, aleve/ibuprofen, simethicone scheduled for 3 days for best pain relief Discharge Disposition: HOME SELF-CARE
== END | disposition home or self-care (01) ==
LOC: OR 11:36 → 4SSUR 15:59
PROVIDERS: ATTEND Surgery Plastic and Reconstructive Surgery
DX: K43.9 Ventral hernia without obstruction or gangrene (principal); K66.0 Peritoneal adhesions (postprocedural) (postinfection); G89.18 Other acute postprocedural pain; I25.10 Atherosclerotic heart disease of native coronary artery without angina pectoris; J45.909 Unspecified asthma, uncomplicated; E11.21 Type 2 diabetes mellitus with diabetic nephropathy; K91.0 Vomiting following gastrointestinal surgery; I11.9 Hypertensive heart disease without heart failure; H54.8 Legal blindness, as defined in USA; H91.93 Unspecified hearing loss, bilateral; F41.1 Generalized anxiety disorder; F32.A Depression, unspecified; Z85.850 Personal history of malignant neoplasm of thyroid; Z98.51 Tubal ligation status; Z98.891 History of uterine scar from previous surgery; Z95.5 Presence of coronary angioplasty implant and graft; Z90.49 Acquired absence of other specified parts of digestive tract; Z95.2 Presence of prosthetic heart valve; Z83.3 Family history of diabetes mellitus; Z79.82 Long term (current) use of aspirin; Z79.899 Other long term (current) drug therapy; Z79.51 Long term (current) use of inhaled steroids; Z79.4 Long term (current) use of insulin
CPT/HCPCS: 64461; 80053; 85025; 88302; 49591; J2250; J1100; J2710; J0690; J2405; J3010; J1170 ×2; J2795; J2704; J1644; J2001

== ENCOUNTER → 2023-05-12 | Outpatient (CLI) | payer MEDICARE ==
--- NOTE | 2023-05-15 07:58 | MM ---
Reason for Exam: Screening (asymptomatic). Last mammogram was performed 14 year(s) and 9 month(s) ago. Patient History: Menarche at age 14. First Full-Term at age 35. Late child-bearing (after 30). Postmenopausal. Other cancer. 08/28/2003, Benign Excisional Biopsy on the left side. Maternal aunt had breast cancer, age 78. Mother had breast cancer, age 78. Risk Values: Nicole 5 year model risk: 4.2%. NCI Lifetime model risk: 11.2%. Prior Study Comparison: 07/23/2003 Bilateral Special View Mammogram, [facility]. 09/08/2005 Bilateral Diagnostic Mammogram, [facility]. 07/17/2008 Bilateral Screening Mammogram, [facility]. Tissue Density: There are scattered areas of fibroglandular density. Findings: Analyzed By CAD. The pattern is symmetrical. Scattered benign spherical calcifications are present bilaterally No suspicious groups of microcalcifications, spiculated or lobular masses, architectural distortion or other secondary signs of malignancy are mammographically apparent. Overall Assessment: Benign, BI-RAD 2 Management: Screening Mammogram of both breasts in 1 year. A negative mammogram report should not preclude additional follow up of suspicious palpable abnormalities. Patient should continue monthly self breast exam. A clinical breast exam by your physician is recommended on an annual basis and results should be correlated with mammographic findings. Electronically signed and approved by: Sim Macdonald D.O. Radiologis
== END | disposition home or self-care (01) ==
LOC: RADMAMWWP 08:32
PROVIDERS: ATTEND Family Medicine
DX: Z12.31 Encounter for screening mammogram for malignant neoplasm of breast (principal); Z80.3 Family history of malignant neoplasm of breast; Z78.0 Asymptomatic menopausal state
CPT/HCPCS: 77063; 77067

== ENCOUNTER → 2023-05-12 | Outpatient (CLI) | payer MEDICARE ==
--- NOTE | 2023-05-12 13:46 | US ---
EXAMINATION TYPE: US abdomen limited DATE OF EXAM: 05/12/2023 COMPARISON: 01/07/2022 CT CLINICAL INDICATION: Female, 73 years old with history of R19.00 INTRA-ABD AND PELVIC SWELLING, MASS AND LUM; Lump left abdomen. Has been there for one year. States that she had prior surgery on this ar ea and there is still a lump and it is painful. Assess for hernia at location of: Left abdomen There is a 4.8 x 1.9 x 4.4cm hypoechoic area seen within the left abdomen at patients AOC. Questionab le hernia vs other etiology. IMPRESSION: There is some abnormal signal at the area of the patient's palpable abnormality left low er quadrant. Hernia without evidence of bowel may be present. Consider follow-up CT pelvis for additi onal evaluation. Real-time scanning was performed by the lens grinder rough utilizing Valsalva and additional dynamic maneuve rs to assess for hernia.
== END | disposition home or self-care (01) ==
LOC: RADUSWWP 08:34
PROVIDERS: ATTEND Surgery Plastic and Reconstructive Surgery
DX: R19.00 Intra-abdominal and pelvic swelling, mass and lump, unspecified site (principal)
CPT/HCPCS: 76705

== ENCOUNTER → 2023-10-23 | Outpatient (CLI) | payer MEDICARE ==
[2023-10-23 14:03] LABS: African American GFR (CKD) >90 (>60 ml/min/1.73 sqM); Blood Urea Nitrogen 16 mg/dL (7-17); Non-African American GFR(CKD) 87 (>60 ml/min/1.73 sqM)
--- NOTE | 2023-10-23 15:46 | CT ---
EXAMINATION TYPE: CT abdomen pelvis w con DATE OF EXAM: 10/23/2023 COMPARISON: 01/07/2022 HISTORY: ABDOMINAL PAIN. LUQ MASS/LUMP CT DLP: 1201 mGycm Automated exposure control for dose reduction was used. TECHNIQUE: Helical acquisition of images was performed from the lung bases through the pelvis. CONTRAST: Performed with Oral Contrast and with IV Contrast, patient injected with 100 ml mL of Isovue 300. FINDINGS: The lung bases are clear. The gallbladder is normal without distention, wall thickening, pericholecystic fluid or gallstones. T here is no biliary ductal dilatation. There is no focal mass or organomegaly involving the liver, pancreas, spleen or adrenal glands. There is no solid renal mass or hydronephrosis and there is homogeneous contrast enhancement of the r enal parenchyma. The caliber the abdominal aorta is normal is no retroperitoneal adenopathy or hemorr dante. The bowel loops are normal in caliber and there is no evidence of dilatation or obstruction. No infla mmatory changes are identified in the bowel wall or mesentery. There is no free intraperitoneal air or fluid. No pelvic mass, free fluid, abscess or adenopathy. The osseous structures and soft tissues are intact. IMPRESSION: No significant abnormality seen.
== END | disposition home or self-care (01) ==
LOC: RADCTMAIN 13:15
PROVIDERS: ATTEND Family Medicine
DX: R19.02 Left upper quadrant abdominal swelling, mass and lump (principal)
CPT/HCPCS: 74177; 82565; 84520

== ENCOUNTER → 2024-08-26 | Outpatient (CLI) | payer MEDICARE ==
--- NOTE | 2024-08-26 09:36 | MM ---
Reason for Exam: Screening (asymptomatic). Last mammogram was performed 1 year(s) and 4 month(s) ago. Patient History: Menarche at age 14. First Full-Term at age 35. Late child-bearing (after 30). Postmenopausal. Patient has history of breast feeding. Other cancer. 08/28/2003, Benign Excisional Biopsy on the left side. Maternal aunt had breast cancer, age 78. Mother had breast cancer, age 78. Risk Values: Nicole 5 year model risk: 4.2%. NCI Lifetime model risk: 10.6%. Prior Study Comparison: 09/08/2005 Bilateral Diagnostic Mammogram, [facility]. 07/17/2008 Bilateral Screening Mammogram, [facility]. 05/12/2023 Bilateral MG 3D screening mammo w/cad, [facility]. Tissue Density: The breasts are heterogeneously dense, which may obscure small masses. Findings: Analyzed By CAD. There is no suspicious group of microcalcifications or new suspicious mass in either breast. Overall Assessment: Benign, BI-RAD 2 Management: Screening Mammogram of both breasts in 1 year. . Patient should continue monthly self-breast exams. A clinical breast exam by your physician is recommended on an annual basis. This exam should not preclude additional follow-up of suspicious palpable abnormalities. Note on Nicole scores and lifetime risk: 1. A Nicole score greater than 3% is considered moderate risk. If this is the case, consider specialist referral to assess eligibility for a risk reducing agent. 2. If overall lifetime risk for the development of breast cancer is 20% or higher, the patient may qualify for future screening with alternating mammogram and breast MRI. [facility], , 08/26/2024 8:39 AM. Electronically signed and approved by: Dalton Barney M.D. Radiologis
--- NOTE | 2024-08-26 09:45 | XR ---
EXAMINATION TYPE: XR chest 2V DATE OF EXAM: 08/26/2024 9:24 AM COMPARISON: Chest radiographs from 05/13/2021. CLINICAL INDICATION: Female, 74 years old with history of R09.89; TECHNIQUE: XR chest 2V Frontal and lateral views of the chest. FINDINGS: Lungs/Pleura: There is no evidence of pleural effusion, focal consolidation, or pneumothorax. Pulmonary vascularity: Unremarkable. Heart/mediastinum: Cardiomediastinal silhouette is unremarkable. Musculoskeletal: No acute osseous pathology. Midline sternotomy wires are noted. IMPRESSION: No acute cardiopulmonary disease/process. [facility], , 08/26/2024 9:42 AM
== END | disposition home or self-care (01) ==
LOC: RADMAMWWP 08:26
PROVIDERS: ATTEND Family Medicine
DX: Z12.31 Encounter for screening mammogram for malignant neoplasm of breast (principal); R09.89 Other specified symptoms and signs involving the circulatory and respiratory systems; R92.333 Mammographic heterogeneous density, bilateral breasts; Z78.0 Asymptomatic menopausal state; Z80.3 Family history of malignant neoplasm of breast
CPT/HCPCS: 71046; 77063; 77067